=== PATIENT | female | born 1950 | race Caucasian/White ===

== ENCOUNTER → 2020-03-20 17:55 | Outpatient (CLI) | payer MEDICARE, SELFPAY ==
--- NOTE | ~2020-03-20 | MM_ITS ---
EXAMINATION: MM screening [facility] BI w robert HISTORY: Screening mammogram, family history of breast cancer in her sister. TECHNIQUE: Craniocaudal and mediolateral oblique 3-D tomosynthesis images were obtained and synthetic 2-D images were generated. CAD analysis was submitted and interpreted. COMPARISON: 11/29/2018, 09/28/2017, 09/17/2017, 07/08/2016 BREAST PARENCHYMAL COMPOSITION: There are scattered areas of fibroglandular density. FINDINGS: Stable right breast masses are again noted and considered benign given the lack of interval change. There is no evidence of suspicious mass, calcification, or architectural distortion to sugge st malignancy in either breast. There has been no suspicious interval change. IMPRESSION: 1. No mammographic evidence of malignancy. 2. Recommend routine screening mammography in one year. BI-RADS Category 2: Benign finding(s). Reviewed, dictated and finalized at location A.
== END ==
PROVIDERS: Visit Provider Obstetrics & Gynecology
DX: Z12.31 Encounter for screening mammogram for malignant neoplasm of breast (principal)
CPT/HCPCS: 77063; 77067

== ENCOUNTER → 2021-07-18 13:55 | Outpatient (CLI) | payer MEDICARE, SELFPAY ==
--- NOTE | ~2021-07-18 | MM_ITS ---
EXAMINATION: MM screening [facility] BI w robert HISTORY: Screening mammogram TECHNIQUE: Craniocaudal and mediolateral oblique 3-D tomosynthesis images were obtained and synthetic 2-D images were generated. CAD analysis was submitted and interpreted. COMPARISON: 03/20/2020, 11/29/2018 bilateral screening mammogram examinations 09/28/2017 diagnostic left mammogram and limited left breast ultrasound , bilateral screening mammogram examinations BREAST PARENCHYMAL COMPOSITION: There are scattered areas of fibroglandular density. FINDINGS: Stable mild fibroglandular asymmetry. There is no evidence of suspicious mass, calcificatio n, or architectural distortion to suggest malignancy in either breast. There has been no suspicious i nterval change. IMPRESSION: 1. No mammographic evidence of malignancy. 2. Recommend routine screening mammography in one year. BI-RADS Category 2: Benign finding(s). Reviewed, dictated and finalized at location A. ER IN [facility]
== END ==
PROVIDERS: PCP Family Medicine Adolescent Medicine; Visit Provider Obstetrics & Gynecology
DX: Z12.31 Encounter for screening mammogram for malignant neoplasm of breast (principal)
CPT/HCPCS: 77063; 77067

== ENCOUNTER 2022-01-12 11:53 | Emergency (ER) | payer MEDICARE, SELFPAY ==
[2022-01-12 12:01] VITALS: BP 138/75; PULSE 108; RESP 16; TEMP 37; O2SAT 100
--- NOTE | 2022-01-12 12:36 | ED.URI ---
HPI - URI/Sore Throat General Chief Complaint: Upper Respiratory Infection Stated Complaint: covid positive Time Seen by Provider: 01/12/22 12:35 Source: patient, RN notes reviewed and old records reviewed Mode of arrival: ambulatory Limitations: no limitations History of Present Illness HPI Narrative: 71-year-old female who presents to [facility] with complaints of testing positive on home test on Thursday for COVID with symptoms starting on Thursday, is here today inquiring about receiving Paxlovid antiviral medication. Patient reports that she has sinus congestion pressure aiwth some drainage with body aches and temperatures have been running 99-100F. Patient reports no acute cough, denies any shortness of breath. Patient has history of diabetes, HTN, chronic renal disease and also kidney stone history. Patient has not taken any OTC medications for her symptoms. Patient has been COVID vaccinated and booster also. Patient states concern since had been so ill with COVID. MD elicited complaint: other (COVID positive) Pertinent past history: pneumonia and other (kidney disease, diabetes, hypertension, elevated cholesterol) Onset (ago): day(s) (this day 3 of symptoms) Treatments prior to arrival: none Related Data Allergies Allergy/AdvReac Type Severity Reaction Status Date / Time diclofenac Allergy Unknown HIVES Unverified 01/12/22 12:26 Sulfa (Sulfonamide Allergy Unknown SWOLLEN Unverified 01/12/22 12:26 Antibiotics) LIPS Review of Systems Review of Systems: CONSTITUTIONAL: Reports low grade fever, chills, or sweats. EYES: Denies visual changes, redness, or discharge. ENT: rhinorrhea, congestion, no sore throat, or otalgia. CARDIOVASCULAR: Denies chest pain, palpitations, or edema. RESPIRATORY: Denies cough or dyspnea. GASTROINTESTINAL: Denies abdominal pain, nausea, vomiting, or diarrhea. GENITOURINARY: Denies dysuria or hematuria. SKIN: Denies rash or itching. MUSCULOSKELETAL: Denies back pain, joint pain, positive for body aches NEUROLOGIC: Denies headache, numbness, or weakness. PSYCHIATRIC: Denies anxiety or depression. All systems reviewed & are unremarkable except as noted in HPI and below PMFSH Past Medical History Medical History (Updated 01/13/22 @ 21:45 by Samara Gomez NP) Hypertension IBS (irritable bowel syndrome) Kidney stones Normal colonoscopy 11/10 Repeat 11/20 Pure hypercholesterolemia, unspecified Sensorineural hearing loss, bilateral Type 2 diabetes mellitus with diabetic chronic kidney disease Surgical History Surgical History (Updated 06/25/21 @ 15:30 by Lino Mattson MD) History of carpal tunnel surgery of left wrist 2005 History of ear surgery right stapedectomy 2013 History of hysterectomy w/BSO History of lithotripsy History of parathyroid surgery 1998 Family History Family History (Updated 06/25/21 @ 15:20 by Lino Mattson MD) Mother Cerebrovascular accident Sibling Breast cancer Social History Social History (Updated 01/13/22 @ 21:43 by Samara Gomez NP) Smoking status: Never smoker Alcohol intake: unknown Substance use: never Living arrangements: with family Gender identity (if verbalized by the patient): Female Comments At time of signature, agree with nursing past medical, surgical, social and family history. There is no relevant family history pertinent to the presenting complaint Exam Narrative: GENERAL: Well-appearing, well-nourished, and in no acute distress. HEAD: Normocephalic, atraumatic. EYES: PERRLA and EOMI. ENT: Nares red with clear rhinorrhea no epistaxis. Mucous membranes moist.TM's normal with good light reflex, throat pink with no lesions or exudates or tonsil swelling,post nasal drainage NECK: Supple.no lymphadenopathy CHEST: Clear to auscultation. No respiratory distress.SAO2 100% on room air, no tachypnea, HEART: Regular rate and rhythm. No murmur heard. Normal peripheral pulses. ABDOMEN: Soft,
== END 2022-01-12 13:01 | disposition home or self-care (01) ==
PROVIDERS: Emergency Provider Registered Nurse; PCP Family Medicine Adolescent Medicine
DX: U07.1 COVID-19 (principal); I10 Essential (primary) hypertension; E78.00 Pure hypercholesterolemia, unspecified; E11.22 Type 2 diabetes mellitus with diabetic chronic kidney disease; I12.9 Hypertensive chronic kidney disease with stage 1 through stage 4 chronic kidney disease, or unspecified chronic kidney disease; N18.9 Chronic kidney disease, unspecified
CPT/HCPCS: 99213; G0463

== ENCOUNTER → 2022-10-22 11:27 | Outpatient (CLI) | payer MEDICARE, SELFPAY ==
--- NOTE | ~2022-10-22 | MM_ITS ---
EXAMINATION: MM screening [facility] BI w robert HISTORY: Screening mammogram TECHNIQUE: Craniocaudal and mediolateral oblique 3-D tomosynthesis images were obtained and synthetic 2-D images were generated. CAD analysis was submitted and interpreted. COMPARISON: July 18, 2021, March 20, 2020, November 29, 2018 bilateral screening mammogram examinati ons BREAST PARENCHYMAL COMPOSITION: There are scattered areas of fibroglandular density. FINDINGS: Left breast: There is no evidence of suspicious mass, calcification, or architectural distortion to s uggest malignancy in either breast. There has been no suspicious interval change. Right breast: There is asymmetry and suggestion of subtle increased density in the upper outer right breast since prior examinations. Diagnostic right mammogram and upper outer quadrant right breast ult rasound examination are recommended IMPRESSION: 1. Asymmetry and possible subtle increased density in the upper outer right breast 2. Diagnostic right mammogram and upper outer quadrant right breast ultrasound examination are recomm ended BI-RADS Category 0: Incomplete: Needs additional imaging evaluation. Reviewed, dictated and finalized at location A. IMPRESSION: 1. Asymmetry and possible subtle increased density in the upper outer right kelsey ast 2. Diagnostic right mammogram and upper outer quadrant right breast ultrasound examination are recommended BI-RADS Category 0: Incomplete: Needs additional imaging evaluation.
== END ==
PROVIDERS: PCP Obstetrics & Gynecology; Visit Provider Obstetrics & Gynecology
DX: Z12.31 Encounter for screening mammogram for malignant neoplasm of breast (principal); R92.8 Other abnormal and inconclusive findings on diagnostic imaging of breast
CPT/HCPCS: 77063; 77067

== ENCOUNTER → 2022-11-11 07:49 | Outpatient (CLI) | payer MEDICARE, SELFPAY ==
--- NOTE | ~2022-11-11 | MMUS_ITS ---
EXAMINATION: MM diagnostic [facility] RT w robert, US breast RT limited HISTORY: Asymmetry and possible interval subtle increased density in the upper quadrant of the right breast reported on 10/22/2022 TECHNIQUE: Additional 3-D tomosynthesis images of the right breast were performed and synthetic 2-D i mages were generated. CAD analysis was submitted and interpreted. High resolution upper inner and upp er outer quadrant right breast ultrasound was performed. COMPARISON: 10/22/2022, 07/14/2021, 03/20/2020 bilateral screening mammogram examinations.. FINDINGS: MAMMOGRAPHIC FINDINGS: There is nodular density in the mid and lateral upper right breast, with possible masses measuring up to 6 mm. ULTRASOUND: No suspicious mass or shadowing is evident. 11:00 6 cm from nipple: 1.7 x 3.3 x 3.2 mm parallel circumscribed hypoechoic lesion without internal vascularity or posterior shadowing, benign in appearance 11:00 4 cm from nipple: 3.8 x 4 x 7 mm circumscribed septated hypoechoic lesion without internal vasc ularity or posterior shadowing, benign in appearance 12:00 4 cm from nipple: 7.2 x 4.8 x 7.8 mm parallel circumscribed hypoechoic lesion without internal vascularity or posterior shadowing 12:00 5 cm from nipple: 3.5 x 5.4 x 4.5 mm parallel circumscribed septated hypoechoic lesion without internal vascularity or posterior shadowing IMPRESSION: 1. Benign findings 2. Routine annual mammographic screening is recommended BI-RADS Category 2: Benign finding(s). Reviewed, dictated and finalized at location A. IMPRESSION: 1. Benign findings 2. Routine annual mammographic screening is recommended BI-RADS Category 2: Benign finding(s).
== END ==
PROVIDERS: PCP Obstetrics & Gynecology; Visit Provider Obstetrics & Gynecology
DX: N64.89 Other specified disorders of breast (principal)
CPT/HCPCS: 76642; 77061; 77065; G0279

== ENCOUNTER 2024-01-08 11:14 | Outpatient (CLI) | payer MEDICARE, SELFPAY ==
--- NOTE | ~2024-01-08 | MM_ITS ---
EXAMINATION: MM screening [facility] BI w robert HISTORY: Screening TECHNIQUE: Craniocaudal and mediolateral oblique 3-D tomosynthesis images were obtained and synthetic 2-D images were generated. CAD analysis was submitted and interpreted. COMPARISON: Comparison to multiple prior studies sequentially, with oldest reviewed study dated 12/2018. BREAST PARENCHYMAL COMPOSITION: Not dense: There are scattered areas of fibroglandular density. FINDINGS: There is no evidence of suspicious mass, calcification, or architectural distortion to sugg est malignancy in either breast. There has been no suspicious interval change. IMPRESSION: 1. No mammographic evidence of malignancy. 2. Recommend routine screening mammography in one year. BI-RADS Category 1: Negative Reviewed, dictated and finalized at location B.
== END 2024-01-08 11:15 ==
LOC: MICIMG 11:15
PROVIDERS: PCP Family Medicine Adolescent Medicine; Visit Provider Obstetrics & Gynecology
DX: Z12.31 Encounter for screening mammogram for malignant neoplasm of breast (principal)
CPT/HCPCS: 77063; 77067

== ENCOUNTER 2024-04-29 18:19 | Observation (INO) | payer MEDICARE, SELFPAY ==
--- NOTE | ~2024-04-29 | CT_ITS ---
EXAMINATION: CTA brain carotid DATE: 04/30/2024 09:57 INDICATION: Stroke. TECHNIQUE: Computed tomographic angiography (CTA) of the head was performed with 100 mL Omnipaque-350 intravenous contrast. CTA of the neck was performed with intravenous contrast. Automated exposure co ntrol and iterative reconstruction technique were employed. The dose-length product was 1100.23 mGy-c m. Maximum intensity projection and volume rendered 3D-reconstructions were created by the [employer] st on a separate workstation. COMPARISON: Head CT 04/29/2024 FINDINGS: HEAD CTA: There is no intracranial hemorrhage, acute infarction, or abnormal intracranial mass lesion . The ventricles are normal in size. The mastoid air cells are normal. There is a prosthetic stapes o n either side. The orbits are normal. There is mucosal thickening in the paranasal sinuses. The verte bral arteries are codominant. There is no significant stenosis of basilar artery or the posterior cer ebral arteries. The posterior communicating arteries are normal. There is no significant stenosis of the intracranial internal carotid arteries or anterior or middle cerebral arteries. Anterior communic ating artery is normal. There is no aneurysm. NECK CTA: There is mild scarring at the lung apices. There is a 4 mm nodule in left thyroid lobe, can not clinically significant. There are no pathologically enlarged lymph nodes. There is no significant stenosis of the vertebral arteries. There is mild plaque in the proximal internal carotid arteries. There is 0% stenosis of the proximal right internal carotid artery relative to normal distal artery lumen diameter (NASCET criteria). There is 12% stenosis of the proximal left internal carotid artery relative to normal distal artery lumen diameter. There is severe cervical spondylosis. IMPRESSION: 1. Normal brain. 2. No aneurysm or significant intracranial arterial stenosis. 3. 0% stenosis of the proximal right internal carotid artery relative to normal distal artery lumen d iameter (NASCET criteria). 4. 12% stenosis of the proximal left internal carotid artery relative to normal distal artery lumen d iameter. Reviewed, dictated and finalized at location A. ON PICKING MACHINE OPERATOR IMPRESSION: 1. Normal brain. 2. No aneurysm or significant intracranial arterial stenosis. 3. 0% stenosis of the proximal right internal carotid artery relative to normal distal artery lumen diameter (NASCET criteria). 4. 12% stenosis of the proximal left internal carotid artery relative to normal distal artery lumen diameter.
--- NOTE | ~2024-04-29 | CT_ITS ---
CT facial & cervical spine wo Ordering provider: Thao Callahan History: . fall . Comparison: None. Technique: Thin slice axial CT of the facial bones was performed without contrast. Coronal and sagit yolanda reformatted images were also obtained. . Automated exposure control and iterative reconstruction technique were employed. The dose-length product was 222.96 mGy-cm. FINDINGS: PARANASAL SINUSES: Left maxillary sinus disease. Obliterated of the left ostiomeatal complex. BONES: Nondisplaced facial bone fracture. Multiple dental caries in the upper jaw. ORBITS AND SUPERFICIAL SOFT TISSUES: The optic globes and orbits are normal. Soft tissue swelling ant erior to the left maxillary sinus and inferior orbit. Fat stranding anterior to the left upper and lo wer jaw. Otherwise, The superficial soft tissues are normal. VISUALIZED MASTOIDS: Well aerated. LIMITED VISUALIZED BRAIN PARENCHYMA: Normal. IMPRESSION: Left nasal bone fracture. Left maxillary sinus disease. Obliteration of the left ostiomeatal complex. Soft tissue swelling anterior to the left orbit and left maxillary sinus. CT facial & cervical spine wo Ordering provider: Thao Callahan History: . fall . Comparison: None. Technique: CT of the cervical spine was performed without contrast. Sagittal and coronal reformatted images were also obtained and reviewed. Automated exposure control and iterative reconstruction tye hnique were employed. The dose-length product was 222.96 mGy-cm. FINDINGS: VERTEBRAE: No subluxation or acute fracture. The occipital condyles are intact. 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 DISC SPACES: Narrowing of the disc C3-C4, C4-C5, C5-C6, C6-C7 and C7-T1. Multilevel facet joint disea se. Multilevel uncovertebral joint osteoarthritic changes. Narrowing of the left foramina at the leve l of C3-C4. Bilateral narrowing of the foramina at the level of C4-C5 more on the left side. Bilatera l narrowing of the foramina at the level of C5-C6 and C6-C7 PARASPINOUS SOFT TISSUES: Normal. IMPRESSION: No acute osseous abnormality cervical spine. Reviewed, dictated and finalized at location A. WARE DESIGNER IMPRESSION: Left nasal bone fracture. Left maxillary sinus disease. Obliteration of the left ostiomeatal complex. Soft tissue swelling anterior to the left orbit and left maxillary sinus. CT facial & cervical spine wo Ordering provider: Thao Callahan History: . fall . Comparison: None. Technique: CT of the cervical spine was performed without contrast. Sagittal a nd coronal reformatted images were also obtained and reviewed. Automated expos ure control and iterative reconstruction technique were employed. The dose-janes th product was 222.96 mGy-cm. FINDINGS: VERTEBRAE: No subluxation or acute fracture. The occipital condyles are intact. 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 DISC SPACES: Narrowing of the disc C3-C4, C4-C5, C5-C6, C6-C7 and C7-T1. Multil evel facet joint disease. Multilevel uncovertebral joint osteoarthritic changes . Narrowing of the left foramina at the level of C3-C4. Bilateral narrowing of the foramina at the level of C4-C5 more on the left side. Bilateral narrowing o f the foramina at the level of C5-C6 and C6-C7 PARASPINOUS SOFT TISSUES: Normal.
--- NOTE | ~2024-04-29 | XR_ITS ---
XR chest 1V portable Ordering provider: Itz Scherer MD History: 73 years Female with . fall . Comparison: None. FINDINGS: MEDIASTINUM: The cardiac silhouette is not enlarged. LUNGS: No effusions or pneumothorax. Bilateral basal increased bronchovascular markings suggestive br onchiolitis or atelectasis or early pneumonia. Clinical correlation advised. Underlying fibrotic nara nges. OTHER: No free air under the diaphragm. IMPRESSION: Bilateral prominent bronchovascular markings in the lower lobes with underlying interstitial changes. Differential include bronchitis versus early pneumonia versus atelectasis. Reviewed, dictated and finalized at location A. WORKER IMPRESSION: Bilateral prominent bronchovascular markings in the lower lobes with underlying interstitial changes. Differential include bronchitis versus early pneumonia v ersus atelectasis.
--- NOTE | ~2024-04-29 | MR_ITS ---
EXAMINATION: MR brain/brain stem wo con DATE: 05/01/2024 10:47 INDICATION: Stroke. TECHNIQUE: Magnetic resonance imaging (MRI) of the brain and brainstem was performed without intraven ous contrast. COMPARISON: Head CT 04/29/24 FINDINGS: There are scattered areas of nonspecific increased T2-weighted signal intensity in the cere bral white matter, which is within normal limits for the patient's age. There is no intracranial hemo rrhage, acute infarction, or abnormal intracranial mass lesion. The ventricles are normal in size. Th ere is mild mucosal thickening in the paranasal sinuses. The orbits are normal. The mastoid air cells are normal. IMPRESSION: 1. Normal aging brain. Reviewed, dictated and finalized at location A. ONETTE PERFORMER IMPRESSION: 1. Normal aging brain.
--- NOTE | ~2024-04-29 | CT_ITS ---
CT brain wo con Ordering provider: Thao Callahan MD History: 73 years Female with . fall . Comparison: None. Technique: CT of the head without contrast. Radiation reduction technique utilized. The dose-length p roduct was 681 mGy-cm. FINDINGS: BRAIN PARENCHYMA AND CSF SPACES: Mild leukoaraiosis and diffuse cortical atrophy. Mild atheromatous d isease. No midline shift, mass effect or hemorrhage. The brain parenchyma and CSF spaces are otherwi se normal. 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 VISUALIZED PARANASAL SINUSES: Left maxillary sinus disease. MASTOIDS: Well aerated. BONES: The bones appear intact. SOFT TISSUES: Visualized nasopharynx is normal. Superficial soft tissues are normal. IMPRESSION: No acute intracranial findings. Reviewed, dictated and finalized at location A. UREMENT COST COORDINATOR
[2024-04-29 18:21] VITALS: BP 181/69; PULSE 109; RESP 20; TEMP 36.4; O2SAT 98
--- NOTE | 2024-04-29 18:58 | ECG_ITS ---
Test Date: 2024-04-29 19:58:56 Measurements Intervals Al[place] Rate: 93 P: 72 OH: 134 QRS: 12 QRSD: 78 T: 42 QT: 335 QTc: 418 Interpretive Statements SINUS RHYTHM No previous ECG available for comparison Electronically Signed On 04-30-2024 14:29:12 ADULT EDUCATION INSTRUCTOR by Haris Argueta M.D.
[2024-04-29 19:57] VITALS: BP 171/73; PULSE 92; RESP 17; O2SAT 99
[2024-04-29 20:11] LABS: Basophils Percent Auto 0.3 % (0.2-1.2); Eosinophils Percent Auto 0.3 % (0-4.4); Hematocrit 37.3 % (37.0-47.0); Hemoglobin 12.5 g/dL (12.0-15.0); Immature Granulocyte Absolute 0.04 K/mm3 (0.00-0.031); Immature Granulocyte Percent A 0.5 % (0-0.5); Lymphocytes Absolute Auto 0.77 K/mm3 (0.9-3.2); Lymphocytes Percent Auto 8.7 % (18.3-44.2); Mean Corpuscular HGB Conc 33.5 g/dl (32-36); Mean Corpuscular Hemoglobin 29.9 pg (26-34); Mean Corpuscular Volume 89.2 fl (80-100); Monocytes Absolute Auto 0.4 K/mm3 (0.1-0.6); Monocytes Percent Auto 4.6 % (2.6-8.5); Neutrophils Absolute Auto 7.6 K/mm3 (1.3-6.7); Neutrophils Percent Auto 85.6 % (45.5-73.1); Platelet Count Result 183 k/mm3 (150-375); Red Blood Count 4.18 M/mm3 (4.2-5.4); Red Cell Distribution Width 12.2 % (11.5-14.5); White Blood Count 8.8 K/mm3 (4.5-10.0)
[2024-04-29 20:23] LABS: Alanine Aminotransferase 18 U/L (6-35); Albumin Level 4.3 g/dL (3.5-5.1); Alkaline Phosphatase 102 U/L (38-126); Anion Gap 4 mmol/L (4-12); Aspartate Amino Transferase 31 U/L (14-36); Bilirubin,Total 1.8 mg/dL (0.2-1.3); Blood Urea Nitrogen 14 mg/dL (7-17); Calcium 8.8 mg/dL (8.4-10.2); Carbon Dioxide 27 mmol/L (22-30); Chloride 106 mmol/L (98-107); Estimated CRCL calculation 55 ml/min; Estimated Glomerular Filt Rate > 60; Glucose 125 mg/dL (65-110); Magnesium 0.9 mg/dL (1.6-2.3); Potassium 3.5 mmol/L (3.4-5.0); Sodium 137 mmol/L (137-145)
[2024-04-29 20:30] LABS: Add Urine Microscopic? YES; Appearance Urine Clear (Clear); Bacteria Urine None Seen /hpf; Bilirubin Urine Negative (Negative); Blood Urine 1+ (Negative); Color Urine Yellow (Yellow); Glucose Urine UA Negative (Negative); Ketones Urine 1+ mg/dL (Negative); Leukocyte Esterase Ur Negative LEU/UL (Negative); Nitrate Urine Negative (Negative); Non Pathogenic Casts 0-2; Protein Urine Negative (Negative); Specific Grav Ur 1.015 (1.001-1.035); Squamous Epithelial Cell Urine None Seen /hpf (Few); Urobilinogen Urine 0.2 mg/dL (<2.0); WBC Urine 0-5 /hpf (0-3)
[2024-04-29 20:35] LABS: Troponin I < 0.012 ng/mL (0.000-0.034)
[2024-04-29] MEDS: MAGNESIUM SULFATE 3GM/D5W100ML 3 GM/100 ML BAG IVPB (21:17)
[2024-04-29 23:12] VITALS: BP 163/71; PULSE 96; RESP 16; O2SAT 100
[2024-04-30] VITALS (11 sets, daily range): BP systolic 120–143; BP diastolic 52–63; PULSE 68–88; RESP 16–20; TEMP 36.5–36.9; O2SAT 96–99; BMI 23.1
--- NOTE | 2024-04-30 | ECHO_ITS ---
Patient Info Name: Eve Aguirre Age: 73 years : 1950 Gender: Female Ht: 68 in Wt: 152 lbs BSA: 1.82 m2 HR: 83 bpm BP: 129 / 63 mmHg Heart Rhythm: Sinus Rhythm Technical Quality: Good Exam Date: 04/30/2024 10:46 AM Exam Location: Echo Lab Patient Status: Inpatient Admit Date: 04/30/2024 Staff Ordering Physician: Neelima Trujillo APRN Safety Intern: Jesica Charles RDCS Attending Provider: Neelima Trujillo APRN Referring Physician: Ronnie MCLAIN; Exam Type: CA echo doppler w bubble study Study Info Complete two-dimensional, color flow and Doppler transthoracic echocardiogram is performed with agitated saline. Contrast/Agitated Saline Contrast/Ag. Saline: Agitated Saline Amount: --- ml Summary 1. Left ventricular chamber dimension is normal. 2. Left ventricular systolic function is normal, estimated at 65-70%. 3. The left ventricular diastolic function is grade I diastolic dysfunction. 4. Right ventricular chamber dimension is normal. 5. Right ventricular systolic function is normal. 6. No patent ovale evident (PFO) by agitated saline imaging. 7. There is mild mitral valve regurgitation. 8. Mild pulmonary hypertension, estimated pulmonary arterial systolic pressure is 41 mmHg. Left Ventricle Left ventricular chamber dimension is normal. Left ventricular systolic function is normal, estimated at 65-70%. There is no increased left ventricular wall thickness. Left ventricular septal wall motion is normal. The left ventricular diastolic function is grade I diastolic dysfunction. Right Ventricle Right ventricular chamber dimension is normal. Right ventricular systolic function is normal. Left Atria Left atrial chamber dimension is normal. Right Atria Right atrial chamber dimension is normal. Atrial Septum No patent ovale evident (PFO) by agitated saline imaging. Aortic Valve The aortic valve is trileaflet. There is no aortic valve sclerosis. There is no aortic valve stenosis. There is no aortic valve regurgitation. Pulmonic Valve The pulmonic valve is not well visualized. Mitral Valve There is no mitral valve stenosis. There is mild mitral valve regurgitation. Tricuspid Valve The tricuspid valve leaflets are normal. There is no significant tricuspid valve stenosis. There is mild tricuspid valve regurgitation. Mild pulmonary hypertension, estimated pulmonary arterial systolic pressure is 41 mmHg. Pericardium/Pleural The pericardium appears normal. There is no pericardial effusion. Inferior Vena Cava Normal inferior vena cava with >50% collapse upon inspiration consistent with normal right atrial pressure, 5 mmHg. Aorta The aortic root size at the sinus of Valsalva is normal. The prox ascending aorta size is normal. Left Ventricular Outflow Tract Name Value Normal LVOT 2D LVOT Diameter 2.1 cm LVOT Doppler LVOT Peak Gradient 5 mmHg Pulmonic Valve Name Value Normal PV Doppler PV Peak Gradient 6 mmHg Mitral Valve Name Value Normal MV Doppler MV Peak Gradient 5 mmHg MV Mean Gradient 2 mmHg MV Decel Kern 394 cm/s2 MV PHT 62 ms MV Area (PHT) 3.5 cm2 4.0-5.0 MV Regurgitation Doppler MR Peak Gradient 147 mmHg MV Diastolic Function MV E Peak Velocity 84 cm/s MV A Peak Velocity 99 cm/s MV E/A 0.9 MV Decel Time 214 ms MV Annular TDI MV E/e' (Septal) 8.7 <=8.0 MV E/e' (Lateral) 9.1 <=8.0 MV E/e' (Average) 8.9 Tricuspid Valve Name Value Normal TV Regurgitation Doppler TR Peak Velocity 301 cm/s TR Peak Gradient 36 mmHg Estimated PAP/RSVP RA Pressure 5 mmHg <=5 PA Systolic Pressure 41 mmHg <36 RV Systolic Pressure 41 mmHg <36 Aorta Name Value Normal Ascending Aorta Ao Root Diameter (2D) 2.8 cm Ao Root Diam Index (2D) 1.6 cm/m2 Aortic Valve Name Value Normal AV Doppler AV Peak Velocity 140 cm/s AV Peak Gradient 8 mmHg AV Area (Cont Eq Desean) 2.7 cm2 AV Regurgitation 2D LVOT Area 3.4 cm2 Ventricles Name Value Normal LV Dimensions 2D/MM IVS Diastolic Thickness (2D) 0.7 cm 0.6-1.0 LVID Diastole (2D) 4.2 cm 3.8-5.2 LVIW Diastolic Thickness (2D) 0.8 cm 0.6-0.9 LVID Systole (2D) 3.1 cm 2.2-3.5 LVOT Diameter 2.1 cm LV Mass (2D Cubed) 90.78 g 67.00-162.00 LV Mass Index (2D Cubed) 50 g/m2 43-95 Relative Wall Thickness (2D) 0.37 LV Fractional Shortening/Ejection Fraction 2D/MM LV Fractional Shortening (2D) 25 % 27-45 LV EF (2D Teicholz) 51 % 54-74 LV Diastolic Volume (4C MOD) 108 ml LV EF (4C MOD) 67 % LV Diastolic Volume (2C MOD) 105 ml LV EF (2C MOD) 73 % LV Diastolic Volume (BP MOD) 107 ml 46-106 LV Diastolic Volume Index (BP MOD) 59 ml/m2 29-61 LV Systolic Volume (BP MOD) 32 ml 14-42 LV Systolic Volume Index (BP MOD) 18 ml/m2 8-24 LV EF (BP MOD) 70 % 54-74 LV Diastolic Length (4C) 8.1 cm LV Systolic Length (4C) 6.1 cm LV Stroke Volume (4C MOD) 73 ml Atria Name Value Normal LA Dimensions LA Dimension (2D) 3.4 cm 2.7-3.8 LA Dimen Index (2D) 1.9 cm/m2 LA Volume (4C A-L) 40 ml LA Volume (BP A-L) 45 ml RA Dimensions RA Area (4C) 12.6 cm2 <=18.0 Report Signatures
--- NOTE | 2024-04-30 00:14 | ED_ITS ---
HPI - General Adult General Chief complaint: Fall Stated complaint: fall Time Seen by Provider: 04/29/24 19:09 History of Present Illness HPI narrative: Patient is a 73-year-old female who presents emergency department with chief complaint of head injury. Patient reports she was outside and suddenly woke up on the ground patient reports no preceding symptoms reports that she has bruis ing around her left orbit and face patient also reports she has an abrasion inside of her lip the patient states that she does not remember passing out does not remember falling reports he did not catch herself during the fall Related Data Home Medications Medication Instructions Recorded Confirmed doxycycline hyclate 100 mg tablet 100 mg PO DAILY 08/04/23 08/04/23 Allergies Allergy/AdvReac Type Severity Reaction Status Date / Time diclofenac Allergy Unknown HIVES Verified 04/29/24 18:25 Sulfa (Sulfonamide Allergy Unknown SWOLLEN Verified 04/29/24 18:25 Antibiotics) LIPS Review of Systems Review of Systems: A 10 system review of systems was completed on the patient and is negative except for what is stated in the HPI. Nursing and ancillary documentation was reviewed. [facility] Past Medical History Medical History Breast asymmetry History of COVID-19 IBS (irritable bowel syndrome) Kidney stones Normal colonoscopy 11/10 Repeat 11/20 Pure hypercholesterolemia, unspecified Screening mammogram, encounter for Screening mammogram, encounter for Sensorineural hearing loss, bilateral Type 2 diabetes mellitus with diabetic chronic kidney disease Surgical History Surgical History History of carpal tunnel surgery of left wrist 2006 History of section x 2 History of ear surgery right stapedectomy 2014 History of hysterectomy w/BSO History of lithotripsy History of parathyroid surgery 1998 Family History Family History Mother Cerebrovascular accident Sibling Breast cancer Diabetes mellitus Hypertension Father Heart disease Hypertension Malignant neoplasm of prostate Social History Social History Smoking status: Never smoker Second hand tobacco smoke exposure: No Alcohol intake: never Substance use: never Substance use type: does not use Living arrangements: other Additional living arrangements comments: Occupation/Education: retired Gender identity (if verbalized by the patient): Female Sexual Orientation (if Verbalized by the Patient): Straight or Heterosexual Spiritual care concerns: No Agree to blood products: Yes Exam Narrative: GENERAL: Well-appearing, well-nourished, and in no acute distress. HEAD: Normocephalic, bruising around the left orbit abrasion to the nose,. EYES: PERRLA and EOMI. ENT: Nares clear, no rhinorrhea or epistaxis. Mucous membranes moist. There is an abrasion to the lip on the inside mucosa there is no malocclusion NECK: Supple. CHEST: Clear to auscultation. No respiratory distress. HEART: Regular rate and rhythm. No murmur heard. Normal peripheral pulses. ABDOMEN: Soft, nontender, nondistended, normal active bowel sounds. EXTREMITIES: Normal range of motion. No edema. SKIN: Warm, dry, no rash. NEURO: No focal deficits. Alert and oriented x3. PSYCH: Normal mood and affect. Course Vital Signs Vital signs: Vital Signs Temperature 36.4 C L 04/29/24 18:21 Pulse Rate 109 H 04/29/24 18:21 Respiratory Rate 20 04/29/24 18:21 Blood Pressure 181/69 H 04/29/24 18:21 Pulse Oximetry 98 04/29/24 18:21 Oxygen Delivery Room Air 04/29/24 18:21 Temperature 36.4 C L 04/29/24 18:21 Pulse Rate 96 04/29/24 23:12 Respiratory Rate 16 04/29/24 23:12 Blood Pressure 163/71 H 04/29/24 23:12 Pulse Oximetry 100 04/29/24 23:12 Oxygen Delivery Room Air 04/29/24 18:21 Medical Decision Making [facility] Narrative Medical decision making narrative: Differential diagnosis includes syncope, CVA, TIA, electrolyte abnormality, anemia Patient is alert oriented GCS 15 showing no focal neurological deficits here in the emergency department. CBC showed a white count of 8.8 hemoglobin of 12.5 electrolytes showed potassium of 3.5 and a magnesium of 0.9 troponin was less than 0.012 urinalysis showed no evidence UTI CT facial bones showed a left nasal bone fracture There are contusions present to face There was no evidence of cervical spine fracture CT head showed no evidence of acute intracranial pathology Chest x-ray Bilateral prominent bronchovascular markings in the lower lobes with underlying interstitial changes. Differential include bronchitis versus early pneumonia versus atelectasis The patient was given 3 g of magnesium as well as 20 mEq of IV potassium in the emergency department. Given the patient most likely had a syncopal episode and with the significant hypomagnesemia which would be pro dysrhythmic the case will be discussed with the hospitalist for admission for observation and electrolyte replacement Vital Signs Vital Signs: Vital Signs Temperature 36.4 C L 04/29/24 18:21 Pulse Rate 109 H 04/29/24 18:21 Respiratory Rate 20 04/29/24 18:21 Blood Pressure 181/69 H 04/29/24 18:21 Pulse Oximetry 98 04/29/24 18:21 Oxygen Delivery Room Air 04/29/24 18:21 Temperature 36.4 C L 04/29/24 18:21 Pulse Rate 96 04/29/24 23:12 Respiratory Rate 16 04/29/24 23:12 Blood Pressure 163/71 H 04/29/24 23:12 Pulse Oximetry 100 04/29/24 23:12 Oxygen Delivery Room Air 04/29/24 18:21 Lab Data 04/29/24 20:06 04/29/24 20:06 Labs: Lab Results 04/29/24 04/29/24 Range/Units 20:06 20:22 WBC 8.8 (4.5-10.0) K/mm3 RBC 4.18 L (4.2-5.4) M/mm3 Hgb 12.5 (12.0-15.0) g/dL Hct 37.3 (37.0-47.0) % MCV 89.2 (80-100) fl MCH 29.9 (26-34) pg MCHC 33.5 (32-36) g/dl RDW 12.2 (11.5-14.5) % Plt Count 183 (150-375) k/mm3 MPV 12.0 H (7.4-10.4) fl Immature Gran % (Auto) 0.5 (0-0.5) % Neut % (Auto) 85.6 H (45.5-73.1) % Lymph % (Auto) 8.7 L (18.3-44.2) % [place] % (Auto) 4.6 (2.6-8.5) % Eos % (Auto) 0.3 (0-4.4) % Baso % (Auto) 0.3 (0.2-1.2) % Lymph # (Auto) 0.77 L (0.9-3.2) K/mm3 [place] # (Auto) 0.4 (0.1-0.6) K/mm3 Eos # (Auto) 0.0 (0-0.3) K/mm3 Baso # (Auto) 0.0 (0.0-0.1) K/mm3 Abs Immat Gran (auto) 0.04 H (0.00-0.031) K/mm3 Absolute Neuts (auto) 7.6 H (1.3-6.7) K/mm3 Absolute Nucleated RBC 0.000 (0.0-0.012) K/mm3 Nucleated RBC % 0.0 (0.0-0.2) % Sodium 137 (137-145) mmol/L Potassium 3.5 (3.4-5.0) mmol/L Chloride 106 (98-107) mmol/L Carbon Dioxide 27 (22-30) mmol/L Anion Gap 4 (4-12) mmol/L BUN 14 (7-17) mg/dL Creatinine 0.80 (0.7-1.0) mg/dL Estim Creat Clear Calc 55 ml/min Estimated GFR > 60 (59 - ) Glucose 125 H (65-110) mg/dL Calcium 8.8 (8.4-10.2) mg/dL Magnesium 0.9 L (1.6-2.3) mg/dL Total Bilirubin 1.8 H (0.2-1.3) mg/dL AST 31 (14-36) U/L ALT 18 (6-35) U/L Alkaline Phosphatase 102 (38-126) U/L Troponin I < 0.012 (0.000-0.034) ng/mL Total Protein 7.0 (6.3-8.2) g/dL Albumin 4.3 (3.5-5.1) g/dL Urine Color Yellow (Yellow) Urine Appearance Clear (Clear) Urine pH 5.0 (5.0-9.0) Ur Specific [place] 1.015 (1.001-1.035) Urine Protein Negative (Negative) mg/dL Urine Glucose (UA) Negative (Negative) mg/dL Urine Ketones 1+ H (Negative) mg/dL Ur Blood (Man) 1+ H (Negative) Urine Nitrate Negative (Negative) Urine Bilirubin Negative (Negative) Urine Urobilinogen 0.2 (<2.0) mg/dL Leukocyte Esterase Rfl Negative (Negative) JOANNA/UL Urine RBC 3-5 H (0-2) /hpf Urine WBC 0-5 (0-3) /hpf Ur Squamous Epith Cells None seen (Few) /hpf Urine Bacteria None seen /hpf Urine Casts 0-2 Discharge Plan Discharge Clinical Impression: Syncope, Hypomagnesemia, Contusion of face, Closed fracture nasal bone, Head injury Patient Disposition: Still a Patient Condition: Stable Prescriptions: No Action doxycycline hyclate 100 mg tablet 100 mg PO DAILY lisinopril 10 mg tablet See Rx Instructions .ROUTE .COMPLEX Qty: 90 3RF Hold Instructions: Patient Condition Dose Instruction: TAKE 1 TABLET BY MOUTH EVERY DAY Rx Instructions: TAKE 1 TABLET BY MOUTH EVERY DAY atorvastatin 40 mg tablet See Rx Instructions .ROUTE .COMPLEX Qty: 90 3RF Dose Instruction: TAKE 1 TABLET BY MOUTH EVERY DAY Rx Instructions: TAKE 1 TABLET BY MOUTH EVERY DAY metformin 500 mg tablet extended release 24 hr 1,000 mg PO DAILY Qty: 180 3RF spironolactone 50 mg tablet 50 mg PO DAILY Qty: 90 1RF Rx Instructions: 50 mg orally PRN; Follow-up/Referrals: Lino Mattson MD [Primary Care Provider] - Time of Disposition: 00:18
[2024-04-30] MEDS: KCL 20 MEQ/SW 100 ML 100 ML 50 MEQ IVPB (00:27)
[2024-04-30] MEDS: SODIUM CHLORIDE 0.9% IV 250 ML 100 ML (00:33)
[2024-04-30] MEDS: HYDROcodone/acetaminophen (*CRX) 5-325 MG TABLET 1 TAB PO ×3 (00:38→13:09)
--- NOTE | 2024-04-30 02:19 | ADMGEN ---
This patient, Eve Aguirre, was admitted to Medical Room [facility] at 0219. Patient/family oriented to hospital policies and general routines including ID bracelet, bed and alarms, visiting hours, pain management, procedures, bathroom and other care routines, personal items, smoking policy, room service/diet, and visiting hours. Information on how to activate the Rapid Response Team has been discussed. Patient/Family are encouraged to report perceived risks to care and to ask questions if they do not understand what they are told or what they should do.
--- NOTE | 2024-04-30 02:30 | ADMGEN ---
This patient, Eve Aguirre, was admitted to Medical Room 346-01. Patient/family oriented to hospital policies and general routines including ID bracelet, bed and alarms, visiting hours, pain management, procedures, bathroom and other care routines, personal items, smoking policy, room service/diet, and visiting hours. Information on how to activate the Rapid Response Team has been discussed. Patient/Family are encouraged to report perceived risks to care and to ask questions if they do not understand what they are told or what they should do.
[2024-04-30 06:15] LABS: Basophils Percent Auto 0.5 % (0.2-1.2); Eosinophils Absolute Auto 0.1 K/mm3 (0-0.3); Eosinophils Percent Auto 1.1 % (0-4.4); Hematocrit 36.5 % (37.0-47.0); Hemoglobin 11.9 g/dL (12.0-15.0); Immature Granulocyte Absolute 0.02 K/mm3 (0.00-0.031); Immature Granulocyte Percent A 0.4 % (0-0.5); Lymphocytes Absolute Auto 1.73 K/mm3 (0.9-3.2); Lymphocytes Percent Auto 31.2 % (18.3-44.2); Mean Corpuscular HGB Conc 32.6 g/dl (32-36); Mean Corpuscular Hemoglobin 29.7 pg (26-34); Mean Platelet Volume 12.3 fl (7.4-10.4); Monocytes Absolute Auto 0.5 K/mm3 (0.1-0.6); Monocytes Percent Auto 9.6 % (2.6-8.5); Neutrophils Absolute Auto 3.2 K/mm3 (1.3-6.7); Neutrophils Percent Auto 57.2 % (45.5-73.1); Platelet Count Result 186 k/mm3 (150-375); Red Blood Count 4.01 M/mm3 (4.2-5.4); Red Cell Distribution Width 12.2 % (11.5-14.5); White Blood Count 5.5 K/mm3 (4.5-10.0)
[2024-04-30 06:22] LABS: Alanine Aminotransferase 16 U/L (6-35); Albumin Level 3.7 g/dL (3.5-5.1); Alkaline Phosphatase 93 U/L (38-126); Anion Gap 4 mmol/L (4-12); Aspartate Amino Transferase 25 U/L (14-36); Bilirubin,Total 2.2 mg/dL (0.2-1.3); Blood Urea Nitrogen 12 mg/dL (7-17); Calcium 8.6 mg/dL (8.4-10.2); Carbon Dioxide 30 mmol/L (22-30); Chloride 106 mmol/L (98-107); Estimated CRCL calculation 55 ml/min; Estimated Glomerular Filt Rate > 60; Glucose 103 mg/dL (65-110); Magnesium 1.6 mg/dL (1.6-2.3); Sodium 140 mmol/L (137-145)
--- NOTE | 2024-04-30 08:12 | P.HP_ITS ---
H&P: HPI History of Present Illness Date/Time: 04/30/24 08:12 Chief Complaint: Fall Narrative: This is a 73 year old female with a significant past medical history of kidney stones, IBS, hyperlipidemia, type 2 DM, hypertension for evaluation after a fall. Patient states that all she remembers is that she was bending over trimming landscaping. found her slumped over and brought her in the house. She states her reported that she was confused right after that however she could not remember anything about that. She was only confused for a period of time before she came back to herself. She states she was sitting in the living room chair and her was next to her when she asked what happened. She reports that she bit her lip and does have a swollen bottom lip with scabbing. She was able to move all extremities and did not have any neuro deficits at the time. Work up in the hospital included Chest x-ray that shows bilateral prominent bronchovascular markings in the lower lobes with underlying interstitial changes. Head CT was negative for any acute intracranial findings. Head/Cervical spine/facial bones CT was negative for any acute osseous abnormality of the cervical spine, shown left nasal bone fracture, left maxillary sinus disease, obliteration of the left ostiomeatal complex, soft tissue swelling anterior to the left orbit and left maxillary sinus. Initial labs shown a WBC 8.8, RBC 4.18, Magnesium 0.9, total bili 1.8. UA shown 1+ urine ketones, 1+ urine blood, 3-5 urine RBC, otherwise negative. EKG shown NSR with rate of 93, QTc 418. Patient was given IVF, [place], potassium, and magnesium 3 gm in the ER. Review of Systems Review of Systems: All systems reviewed & are unremarkable except as noted in HPI and below Constitutional: Constitutional: Reports as per HPI and Reports no additional constitutional complaints Eyes: Eyes: Reports as per HPI and Reports no additional eye complaints ENT: Reports system reviewed and no additional complaints, except as documented and Reports as per HPI Cardiovascular: Cardiovascular: Reports as per HPI and Reports no additional cardiovascular complaints Respiratory: Respiratory: Reports as per HPI and Reports no additional respiratory complaints Gastrointestinal: Gastrointestinal: Reports as per HPI and Reports no additional gastrointestinal complaints Genitourinary: Genitourinary: Reports no additional female genitourinary complaints and Reports as per HPI Musculoskeletal: Musculoskeletal: Reports no additional musculoskeletal complaints and Reports as per HPI Integumentary/Breasts: Skin/Breast: Reports system reviewed and no additional complaints, except as docu and Reports as per HPI Neurologic: Reports system reviewed and no additional complaints, except as documented and Reports as per HPI Psychiatric: Psychiatric: Reports no additional psychiatric complaints and Reports as per HPI [facility] Past Medical History Medical History Breast asymmetry History of COVID-19 Hypertension IBS (irritable bowel syndrome) Kidney stones Normal colonoscopy 11/10 Repeat 11/20 Pure hypercholesterolemia, unspecified Screening mammogram, encounter for Screening mammogram, encounter for Sensorineural hearing loss, bilateral Type 2 diabetes mellitus with diabetic chronic kidney disease Surgical History Surgical History History of carpal tunnel surgery of left wrist 2006 History of section x 2 History of ear surgery right stapedectomy 2014 History of hysterectomy w/BSO History of lithotripsy History of parathyroid surgery 1998 Family History Family History Mother Cerebrovascular accident Sibling Breast cancer Diabetes mellitus Hypertension Father Heart disease Hypertension Malignant neoplasm of prostate Social History Social History Smoking status: Never smoker Second hand tobacco smoke exposure: No Alcohol intake: never Substance use: never Substance use type: does not use Do You Feel Safe in your Home?: Yes Lack of Transportation: No Lack of Food: Never True Current Housing: I Have Housing Concerned About Future Housing: No Difficulty Paying Gas/Electric Bills: No Difficulty Paying for Meds: No Currently Unemployed: No Education: High School Diploma/GED Difficulty w/ Childcare or Family Care: No Living arrangements: other Additional living arrangements comments: Occupation/Education: retired Gender identity (if verbalized by the patient): Female Sexual Orientation (if Verbalized by the Patient): Straight or Heterosexual Spiritual care concerns: No Agree to blood products: Yes Meds Home Medications and Allergies Home Medications Medication Instructions Recorded Confirmed Type doxycycline hyclate 100 mg tablet 50 mg PO DAILY PRN SKIN IRRITATION 08/04/23 04/30/24 History ON MOUTH metformin 500 mg tablet,extended 1,000 mg PO DAILY #180 tabs 11/18/23 04/30/24 Rx release 24 hr atorvastatin 40 mg tablet 40 mg PO DAILY 04/30/24 04/30/24 History lisinopril 10 mg tablet 10 mg PO DAILY 04/30/24 04/30/24 History spironolactone 50 mg tablet 50 mg PO DAILY PRN SWELLING 04/30/24 04/30/24 History Allergies Allergy/AdvReac Type Severity Reaction Status Date / Time diclofenac Allergy Unknown HIVES Verified 04/29/24 18:25 Sulfa (Sulfonamide Allergy Unknown SWOLLEN Verified 04/29/24 18:25 Antibiotics) LIPS Vital Signs Vital Signs - 24 hr 04/29/24 18:21 04/29/24 19:57 04/29/24 23:12 Temperature 97.5 F L Pulse Rate 109 H 92 96 Respiratory Rate 20 17 16 Blood Pressure 181/69 H 171/73 H 163/71 H Pulse Oximetry 98 99 100 Oxygen Delivery Room Air Fraction of Inspired Oxygen 04/30/24 02:28 04/30/24 04:00 04/30/24 05:47 Temperature 97.7 F 97.7 F Pulse Rate 81 71 83 Respiratory Rate 20 18 Blood Pressure 143/56 H 129/63 Pulse Oximetry 99 97 Oxygen Delivery Fraction of Inspired Oxygen 04/30/24 07:55 Temperature Pulse Rate Respiratory Rate Blood Pressure Pulse Oximetry 98 Oxygen Delivery Room Air Fraction of Inspired Oxygen 21 Exam Narrative: General: In no acute distress, well nourished Head: atraumatic, no encephalopathy, facial swelling Eyes: EOMI, PERRLA, sclera clear, left eye ecchymosis and swelling ENT: moist mucous membranes, nasal passages clear, Abrasion on nose Neck: supple, no JVD, no adenopathy, trachea midline Cardiac: Normal S1 and S2. RRR, No murmur, gallops or friction rubs, peripheral pulses intact. Respiratory: Lungs clear to auscultation, no adventitious lung sounds, currently on room air Gastrointestinal: soft, non-distended, non-tender, normoactive bowel sounds. : voiding without difficulty. Extremities: moves all extremities well, no edema, good ROM, strength 5/5 Skin:ecchymosis over left eye, abrasion on nose and scab on bottom lip with swelling Neuro: Alert and oriented x4, cranial nerves intact, no neuro deficits. Psych: normal mood, normal affect, interactive H&P: Results Labs Labs: Short CBC 04/29/24 04/30/24 Range/Units 20:06 05:48 WBC 8.8 5.5 (4.5-10.0) K/mm3 Hgb 12.5 11.9 L (12.0-15.0) g/dL Hct 37.3 36.5 L (37.0-47.0) % Plt Count 183 186 (150-375) k/mm3 BMP 04/29/24 04/30/24 20:06 05:48 Sodium 137 140 Potassium 3.5 4.0 Chloride 106 106 Carbon Dioxide 27 30 BUN 14 12 Creatinine 0.80 0.80 Glucose 125 H 103 Calcium 8.8 8.6 Cardiac Enzymes 04/29/24 Range/Units 20:06 Troponin I < 0.012 (0.000-0.034) ng/mL Liver Function 04/29/24 04/30/24 Range/Units 20:06 05:48 Total Bilirubin 1.8 H 2.2 H (0.2-1.3) mg/dL AST 31 25 (14-36) U/L ALT 18 16 (6-35) U/L Alkaline Phosphatase 102 93 (38-126) U/L Albumin 4.3 3.7 (3.5-5.1) g/dL Urine 04/29/24 Range/Units 20:22 Urine Color Yellow (Yellow) Urine Appearance Clear (Clear) Urine pH 5.0 (5.0-9.0) Ur Specific [place] 1.015 (1.001-1.035) Urine Protein Negative (Negative) mg/dL Urine Glucose (UA) Negative (Negative) mg/dL Imaging Chest x-ray: Radiologist's impression: XR chest 1V portable Ordering provider: Itz Scherer MD History: 73 years Female with . fall . Comparison: None. FINDINGS: MEDIASTINUM: The cardiac silhouette is not enlarged. LUNGS: No effusions or pneumothorax. Bilateral basal increased bronchovascular markings suggestive bronchiolitis or atelectasis or early pneumonia. Clinical correlation advised. Underlying fibrotic changes. OTHER: No free air under the diaphragm. IMPRESSION: Bilateral prominent bronchovascular markings in the lower lobes with underlying interstitial changes. Differential include bronchitis versus early pneumonia versus atelectasis. Reviewed, dictated and finalized at location A. [facility] CT scan - head: Radiologist's impression: CT brain wo con Ordering provider: Thao Callahan MD History: 73 years Female with . fall . Comparison: None. Technique: CT of the head without contrast. Radiation reduction technique utilized. The dose-length product was 681 mGy-cm. FINDINGS: BRAIN PARENCHYMA AND CSF SPACES: Mild leukoaraiosis and diffuse cortical atrophy. Mild atheromatous disease. No midline shift, mass effect or hemorrhage. The brain parenchyma and CSF spaces are otherwise normal. 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 VISUALIZED PARANASAL SINUSES: Left maxillary sinus disease. MASTOIDS: Well aerated. BONES: The bones appear intact. SOFT TISSUES: Visualized nasopharynx is normal. Superficial soft tissues are normal. IMPRESSION: No acute intracranial findings. Reviewed, dictated and finalized at location A. [facility] Head/cervical spine/facial bones CT: Radiologist's impression: CT facial & cervical spine wo Ordering provider: Thao Callahan History: . fall . Comparison: None. Technique: Thin slice axial CT of the facial bones was performed without contrast. Coronal and sagittal reformatted images were also obtained. . Automated exposure control and iterative reconstruction technique were employed. The dose-length product was 222.96 mGy-cm. FINDINGS: PARANASAL SINUSES: Left maxillary sinus disease. Obliterated of the left ostiomeatal complex. BONES: Nondisplaced facial bone fracture. Multiple dental caries in the upper jaw. ORBITS AND SUPERFICIAL SOFT TISSUES: The optic globes and orbits are normal. Soft tissue swelling anterior to the left maxillary sinus and inferior orbit. Fat stranding anterior to the left upper and lower jaw. Otherwise, The superficial soft tissues are normal. VISUALIZED MASTOIDS: Well aerated. LIMITED VISUALIZED BRAIN PARENCHYMA: Normal. IMPRESSION: Left nasal bone fracture. Left maxillary sinus disease. Obliteration of the left ostiomeatal complex. Soft tissue swelling anterior to the left orbit and left maxillary sinus. CT facial & cervical spine wo Ordering provider: Thao Callahan History: . fall . Comparison: None. Technique: CT of the cervical spine was performed without contrast. Sagittal and coronal reformatted images were also obtained and reviewed. Automated exp osure control and iterative reconstruction technique were employed. The dose- length product was 222.96 mGy-cm. FINDINGS: VERTEBRAE: No subluxation or acute fracture. The occipital condyles are intact. 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 DISC SPACES: Narrowing of the disc C3-C4, C4-C5, C5-C6, C6-C7 and C7-T1. Multilevel facet joint disease. Multilevel uncovertebral joint osteoarthritic changes. Narrowing of the left foramina at the level of C3-C4. Bilateral narrowing of the foramina at the level of C4-C5 more on the left side. Bilateral narrowing of the foramina at the level of C5-C6 and C6-C7 PARASPINOUS SOFT TISSUES: Normal. IMPRESSION: No acute osseous abnormality cervical spine. Reviewed, dictated and finalized at location A. [facility] Assessment and Plan Assessment and plan (1) Syncope: Code(s): R55 - Syncope and collapse Status: Acute Assessment and Plan: * Head/Cervical spine/ facial bone CT was negative for any acute osseous findings * Head CT was negative for any acute intracranial process * Obtain orthostatic B/P q shift * CTA of brain and Carotid ordered * Plan for MRI of brain and brain stem * Echo with bubble study ordered * Continue cardiac monitoring * Will obtain EEG * PT and OT ordered * Continue fall precautions (2) Closed fracture nasal bone: Code(s): S02.2XXA - Fracture of nasal bones, initial encounter for closed fracture Status: Acute Assessment and Plan: * CT of the head/ cervical spine/ facial bone revealed a left nasal bone fracture, left maxillary sinus disease, obliteration of the left ostiomeatal complex, soft tissue swelling anterior to the left orbit and left maxillary sinus * Continue pain control. (3) Contusion of face: Code(s): S00.83XA - Contusion of other part of head, initial encounter Status: Acute Assessment and Plan: * Left orbital contusion s/p ground-level fall. (4) Hypomagnesemia: Code(s): E83.42 - Hypomagnesemia Status: Acute Assessment and Plan: * Initial Magnesium 0.9 * 3 gm Magnesium given * Continue to trend (5) Type 2 diabetes mellitus without complications: Onset Date: 10/2023 Code(s): E11.9 - Type 2 diabetes mellitus without complications Status: Chronic Assessment and Plan: * Blood sugars ranging 103-125 * Hgb A1C 6.5 on 11/17/23 * Will recheck Hgb A1C today * Accu checks AC/HS * low dose SSI ordered * hypoglycemic protocol in place * Diabetic diet ordered * Hold Metformin (6) Pure hypercholesterolemia, unspecified: Code(s): E78.00 - Pure hypercholesterolemia, unspecified Status: Chronic Assessment and Plan: * continue atorvastatin (7) Hypertension: Code(s): I10 - Essential (primary) hypertension Status: Chronic Assessment and Plan: * Blood pressure ranging 129/63-181/69 * Continue Lisinopril and Spironolactone
[2024-04-30 09:23] LABS: Hemoglobin A1C 6.1 % (<5.7)
[2024-04-30 09:52] LABS: Thyroid Stimulating Hormone 0.683 uIU/mL (0.465-4.680)
[2024-04-30] MEDS: ATORVASTATIN 40 MG TABLET PO (10:23)
[2024-04-30] MEDS: lisinopriL 10 MG TABLET PO (10:23)
[2024-04-30] MEDS: ENOXAPARIN 40 MG/0.4 ML SYRINGE SUB-Q (10:25)
[2024-04-30 11:43] LABS: Magnesium 1.5 mg/dL (1.6-2.3)
[2024-04-30 12:33] LABS: Glucose Point of Care 103 mg/dl (65-105)
[2024-04-30 16:58] LABS: Glucose Point of Care 107 mg/dl (65-105)
[2024-04-30 21:38] LABS: Glucose Point of Care 121 mg/dl (65-105)
[2024-05-01] VITALS (11 sets, daily range): BP systolic 106–131; BP diastolic 46–60; PULSE 69–100; RESP 16–18; TEMP 36.3–36.6; O2SAT 96–97
[2024-05-01 06:41] LABS: Basophils Percent Auto 0.8 % (0.2-1.2); Eosinophils Absolute Auto 0.2 K/mm3 (0-0.3); Eosinophils Percent Auto 4.5 % (0-4.4); Hematocrit 35.6 % (37.0-47.0); Immature Granulocyte Absolute 0.01 K/mm3 (0.00-0.031); Immature Granulocyte Percent A 0.3 % (0-0.5); Lymphocytes Absolute Auto 1.37 K/mm3 (0.9-3.2); Lymphocytes Percent Auto 34.6 % (18.3-44.2); Mean Corpuscular HGB Conc 33.7 g/dl (32-36); Mean Corpuscular Hemoglobin 30.5 pg (26-34); Mean Corpuscular Volume 90.4 fl (80-100); Mean Platelet Volume 12.2 fl (7.4-10.4); Monocytes Absolute Auto 0.4 K/mm3 (0.1-0.6); Monocytes Percent Auto 9.3 % (2.6-8.5); Neutrophils Percent Auto 50.5 % (45.5-73.1); Platelet Count Result 183 k/mm3 (150-375); Red Blood Count 3.94 M/mm3 (4.2-5.4); Red Cell Distribution Width 12.2 % (11.5-14.5)
[2024-05-01 06:47] LABS: Alanine Aminotransferase 14 U/L (6-35); Albumin Level 3.5 g/dL (3.5-5.1); Alkaline Phosphatase 87 U/L (38-126); Anion Gap 2 mmol/L (4-12); Aspartate Amino Transferase 21 U/L (14-36); Bilirubin,Total 2.5 mg/dL (0.2-1.3); Blood Urea Nitrogen 9 mg/dL (7-17); Calcium 8.5 mg/dL (8.4-10.2); Carbon Dioxide 30 mmol/L (22-30); Chloride 105 mmol/L (98-107); Estimated CRCL calculation 49 ml/min; Estimated Glomerular Filt Rate > 60; Glucose 109 mg/dL (65-110); Magnesium 1.3 mg/dL (1.6-2.3); Potassium 4.1 mmol/L (3.4-5.0); Sodium 137 mmol/L (137-145)
--- NOTE | 2024-05-01 08:35 | P.PNIM_ITS ---
Progress Note: A&P Assessment and Plan (1) Syncope: Code(s): R55 - Syncope and collapse Status: Acute Assessment and Plan: * Head/Cervical spine/ facial bone CT was negative for any acute osseous findings * Head CT was negative for any acute intracranial process * Orthostatic blood pressures were normal and did not show a drop in systolic blood pressure, infact increased with position change, heart rate stayed normal. * CTA of brain and Carotid shown a normal brain, no aneurysm or significant intracranial arterial stenosis, 12% stenosis noted in the proximal left internal carotid artery, 0% stenosis in the proximal right internal carotid artery. * Will hold off on MRI of the brain and brainstem as patient has metal tubes in her ears due to hearing loss and she doesn't want these to move in fear of losing all her hearing. * Echo with bubble study shown normal LV systolic function with an estimated EF of 65-70%, grade 1 diastolic dysfunction, mild pulmonary edema, negative bubble study * Continue cardiac monitoring * Will obtain EEG for possible seizure activity, likely due to hypomagnesemia * Neurology consulted * Initial Magnesium level 0.9 and she was given 3 gm of IV Magnesium in the ER. * Hold spironolactone and doxycycline as these medications can cause hypomagnesemia leading to potential seizures. * PT and OT ordered * Continue fall precautions (2) Hypomagnesemia: Code(s): E83.42 - Hypomagnesemia Status: Acute Assessment and Plan: * Magnesium today 1.3 * 3 gm Magnesium given again today * Hold spironolactone and doxycycline as this can cause low magnesium levels * Continue to trend (3) Closed fracture nasal bone: Code(s): S02.2XXA - Fracture of nasal bones, initial encounter for closed fracture Status: Acute Assessment and Plan: * CT of the head/ cervical spine/ facial bone revealed a left nasal bone fracture, left maxillary sinus disease, obliteration of the left ostiomeatal complex, soft tissue swelling anterior to the left orbit and left maxillary sinus * Continue pain control. (4) Contusion of face: Code(s): S00.83XA - Contusion of other part of head, initial encounter Status: Acute Assessment and Plan: * Left orbital contusion s/p ground-level fall. (5) Type 2 diabetes mellitus without complications: Onset Date: 10/2023 Code(s): E11.9 - Type 2 diabetes mellitus without complications Status: Chronic Assessment and Plan: * Blood sugars ranging 107-121 * Hgb A1C 6.5 on 11/17/23 * Will recheck Hgb A1C today * Accu checks AC/HS * low dose SSI ordered * hypoglycemic protocol in place * Diabetic diet ordered * Hold Metformin (6) Pure hypercholesterolemia, unspecified: Code(s): E78.00 - Pure hypercholesterolemia, unspecified Status: Chronic Assessment and Plan: * continue atorvastatin (7) Hypertension: Code(s): I10 - Essential (primary) hypertension Status: Chronic Assessment and Plan: * Blood pressure ranging 106/49-135/62 * Continue Lisinopril Time Spent With Patient Time with patient: Greater than 35 minutes Subjective Date/time seen: 05/01/24 08:35 Interval history: Interval history: This is a 73 year old female with a significant past medical history of kidney stones, IBS, hyperlipidemia, type 2 DM, hypertension for evaluation after a fall. Patient states that all she remembers is that she was bending over trimming landscaping. found her slumped over and brought her in the house. She states her reported that she was confused right after that however she could not remember anything about that. She was only confused for a period of time before she came back to herself. She states she was sitting in the living room chair and her was next to her when she asked what happened. She reports that she bit her lip and does have a swollen bottom lip with scabbing. She was able to move all extremities and did not have any neuro deficits at the time. Work up in the hospital included Chest x-ray that shows bilateral prominent bronchovascular markings in the lower lobes with underlying interstitial changes. Head CT was negative for any acute intracranial findings. Head/Cervical spine/facial bones CT was negative for any acute osseous abnormality of the cervical spine, shown left nasal bone fracture, left maxillary sinus disease, obliteration of the left ostiomeatal complex, soft tissue swelling anterior to the left orbit and left maxillary sinus. Initial labs shown a WBC 8.8, RBC 4.18, Magnesium 0.9, total bili 1.8. UA shown 1+ urine ketones, 1+ urine blood, 3-5 urine RBC, otherwise negative. EKG shown NSR with rate of 93, QTc 418. Patient was given IVF, [place], potassium, and magnesium 3 gm in the ER. After careful review of her record it shows she was on spironolactone which can also deplete her magnesium and she is also on doxycycline which was prescribed by her helminthology teacher for an oral skin issue. Doxycycline can also deplete the magnesium. Both of these have been held. Subjective: Patient denies any new complaints today. Labs reviewed. Review of Systems Review of Systems: All systems reviewed & are unremarkable except as noted in HPI and below Constitutional: Constitutional: Reports as per HPI and Reports no additional constitutional complaints Eyes: Eyes: Reports as per HPI and Reports no additional eye complaints ENT: Reports system reviewed and no additional complaints, except as documented and Reports as per HPI Cardiovascular: Cardiovascular: Reports as per HPI and Reports no additional cardiovascular complaints Respiratory: Respiratory: Reports as per HPI and Reports no additional respiratory complaints Gastrointestinal: Gastrointestinal: Reports as per HPI and Reports no additional gastrointestinal complaints Genitourinary: Genitourinary: Reports no additional female genitourinary complaints and Reports as per HPI Musculoskeletal: Musculoskeletal: Reports no additional musculoskeletal complaints and Reports as per HPI Integumentary/Breasts: Skin/Breast: Reports system reviewed and no additional complaints, except as docu and Reports as per HPI Neurologic: Reports system reviewed and no additional complaints, except as documented and Reports as per HPI Psychiatric: Psychiatric: Reports no additional psychiatric complaints and Reports as per HPI Exam Narrative: General: In no acute distress, well nourished Cardiac: Normal S1 and S2. RRR, No murmur, gallops or friction rubs, peripheral pulses intact. Respiratory: Lungs clear to auscultation, no adventitious lung sounds, currently on room air Gastrointestinal: soft, non-distended, non-tender, normoactive bowel sounds. : voiding without difficulty. Skin:ecchymosis over left eye, abrasion on nose and scab on bottom lip with swelling Neuro: Alert and oriented x4 Objective Data Vital Signs Vital Signs: Vital Signs - 24 hr 04/30/24 09:38 04/30/24 11:20 04/30/24 13:58 Temperature 98.4 F Pulse Rate 79 Respiratory Rate 16 Blood Pressure 120/60 Pulse Oximetry 96 Oxygen Delivery Room Air Room Air 04/30/24 12:00 04/30/24 16:00 04/30/24 21:54 Temperature 98.1 F Pulse Rate 79 68 80 Respiratory Rate 18 Blood Pressure 125/52 L Pulse Oximetry 97 Oxygen Delivery 04/30/24 21:59 04/30/24 22:03 05/01/24 00:00 Temperature Pulse Rate 76 Respiratory Rate Blood Pressure 135/62 131/61 Pulse Oximetry Oxygen Delivery 05/01/24 04:00 05/01/24 05:27 Temperature 97.5 F L Pulse Rate 73 76 Respiratory Rate 18 Blood Pressure 106/49 L Pulse Oximetry 96 Oxygen Delivery Intake/Output Intake/Output: Intake & Output 04/28/24 04/29/24 04/30/24 05/01/24 23:59 23:59 23:59 23:59 Intake Total 990 350 Balance 990 350 Meds/Results Medications: Active Medications Generic Name Dose Route Start Last Admin Trade Name Freq PRN Reason Stop Dose Admin Acetaminophen 650 mg 04/30/24 08:25 Acetaminophen 325 Mg Tablet PO Q4H PRN Mild Pain (1-3) or Fever Hydrocodone Bitart/Acetaminophen 1 tab 04/30/24 00:53 04/30/24 13:09 Hydrocodone/Acetaminophen (*Crx) 5-325 Mg Tablet PO 1 tab Q4H PRN Administration Pain Rated 4-6 Atorvastatin Calcium 40 mg 04/30/24 09:00 04/30/24 10:23 Atorvastatin 40 Mg Tablet PO 40 mg DAILY DEEDEE Administration Dextrose 12.5 gm 04/30/24 08:25 Dextrose 50% 25 Gm/50 Ml Syringe IV PUSH PRN PRN Hypoglycemia Protocol Enoxaparin Sodium 40 mg 04/30/24 09:00 04/30/24 10:25 Enoxaparin 40 Mg/0.4 Ml Syringe SUB-Q 40 mg DAILY DEEDEE Administration Glucagon 1 mg 04/30/24 08:25 Glucagon For Inj 1 Mg Vial IM PRN PRN Hypoglycemia Protocol Glucose 15 gm 04/30/24 08:25 Glucose Oral Gel 15 Gm Of Glucse In 37.5 Gm Tube PO PRN PRN Hypoglycemia Protocol Dextrose 1,000 mls @ 100 mls/hr 04/30/24 08:25 Dextrose 5% 1,000 Ml IVPB PRN PRN Hypoglycemia Protocol Magnesium Sulfate/Dextrose 3 gm in 100 mls @ 33.333 mls/hr 05/01/24 08:34 Magnesium Sulfate 3gm/[id number] IVPB 05/01/24 11:33 ONCE ONE Insulin Aspart 2 - 5 units 04/30/24 09:05 04/30/24 16:56 Insulin Aspart (*Bkc) 100 Units/Ml SUB-Q Not Given TIDWM DEEDEE Protocol Insulin Aspart 1 - 2 units 04/30/24 21:00 04/30/24 22:34 Insulin Aspart (*Bkc) 100 Units/Ml SUB-Q Not Given HS DEEDEE Protocol Lisinopril 10 mg 04/30/24 09:00 04/30/24 10:23 Lisinopril 10 Mg Tablet PO 10 mg DAILY DEEDEE Administration Ondansetron HCl 4 mg 04/30/24 00:53 Ondansetron Inj 4 Mg/2 Ml Vial IV PUSH Q4H PRN Nausea Perflutren Lipid Microsphere 0 ml 04/30/24 08:28 Perflutren Lipid Microspheres 1.5 Ml Vial Diluted To 10 Ml Total Volume IV PUSH 05/03/24 08:28 ONCE PRN adequate visualization Protocol Spironolactone 50 mg 04/30/24 08:33 Spironolactone 50 Mg Tablet PO DAILY PRN SWELLING Radiology Results: ITS Impressions Chest X-Ray 04/29/24 19:47 IMPRESSION: Bilateral prominent bronchovascular markings in the lower lobes with underlying interstitial changes. Differential include bronchitis versus early pneumonia versus atelectasis. Head CT 04/29/24 21:45 IMPRESSION: No acute intracranial findings. Head/Cervical Spine/Facial Bones CT 04/29/24 22:46 IMPRESSION: Left nasal bone fracture. Left maxillary sinus disease. Obliteration of the left ostiomeatal complex. Soft tissue swelling anterior to the left orbit and left maxillary sinus. CT facial & cervical spine wo Ordering provider: Thao Callahan History: . fall . Comparison: None. Technique: CT of the cervical spine was performed without contrast. Sagittal and coronal reformatted images were also obtained and reviewed. Automated exposure control and iterative reconstruction technique were employed. The dose- length product was 222.96 mGy-cm. FINDINGS: [place]BRA[place]: No subluxation or acute fracture. The occipital condyles are intact. 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 DISC SPACES: Narrowing of the disc C3-C4, C4-C5, C5-C6, C6-C7 and C7-T1. Multilevel facet joint disease. Multilevel uncovertebral joint osteoarthritic changes. Narrowing of the left foramina at the level of C3-C4. Bilateral narrowing of the foramina at the level of C4-C5 more on the left side. Bilateral narrowing of the foramina at the level of C5-C6 and C6-C7 PARASPINOUS SOFT TISSUES: Normal. IMPRESSION: No acute osseous abnormality cervical spine. Head/Neck CTA 04/30/24 10:09 IMPRESSION: 1. Normal brain. 2. No aneurysm or significant intracranial arterial stenosis. 3. 0% stenosis of the proximal right internal carotid artery relative to normal distal artery lumen diameter (NASCET criteria). 4. 12% stenosis of the proximal left internal carotid artery relative to normal distal artery lumen diameter. Labs Labs: Laboratory Results - last 24 hr 04/30/24 04/30/24 04/30/24 05:48 10:54 12:30 WBC RBC Hgb Hct MCV MCH MCHC RDW Plt Count MPV Immature Gran % (Auto) Neut % (Auto) Lymph % (Auto) [place] % (Auto) Eos % (Auto) Baso % (Auto) Lymph # (Auto) [place] # (Auto) Eos # (Auto) Baso # (Auto) Abs Immat Gran (auto) Absolute Neuts (auto) Absolute Nucleated RBC Nucleated RBC % Sodium Potassium Chloride Carbon Dioxide Anion Gap BUN Creatinine Estim Creat Clear Calc Estimated GFR Glucose POC Capillary Glucose 103 Hemoglobin A1c 6.1 H Calcium Magnesium 1.5 L Total Bilirubin AST ALT Alkaline Phosphatase Total Protein Albumin TSH 0.683 04/30/24 04/30/24 05/01/24 16:56 20:59 06:15 WBC 4.0 L RBC 3.94 L Hgb 12.0 Hct 35.6 L MCV 90.4 MCH 30.5 MCHC 33.7 RDW 12.2 Plt Count 183 MPV 12.2 H Immature Gran % (Auto) 0.3 Neut % (Auto) 50.5 Lymph % (Auto) 34.6 [place] % (Auto) 9.3 H Eos % (Auto) 4.5 H Baso % (Auto) 0.8 Lymph # (Auto) 1.37 [place] # (Auto) 0.4 Eos # (Auto) 0.2 Baso # (Auto) 0.0 Abs Immat Gran (auto) 0.01 Absolute Neuts (auto) 2.0 Absolute Nucleated RBC 0.000 Nucleated RBC % 0.0 Sodium 137 Potassium 4.1 Chloride 105 Carbon Dioxide 30 Anion Gap 2 L BUN 9 Creatinine 0.90 Estim Creat Clear Calc 49 Estimated GFR > 60 Glucose 109 POC Capillary Glucose 107 H 121 H Hemoglobin A1c Calcium 8.5 Magnesium 1.3 L Total Bilirubin 2.5 H AST 21 ALT 14 Alkaline Phosphatase 87 Total Protein 6.0 L Albumin 3.5 TSH Quality VTE Prophylaxis VTE prophylaxis: pharmacologic ordered
[2024-05-01 09:01] LABS: Glucose Point of Care 108 mg/dl (65-105)
[2024-05-01] MEDS: ENOXAPARIN 40 MG/0.4 ML SYRINGE SUB-Q (09:17)
[2024-05-01] MEDS: lisinopriL 10 MG TABLET PO (09:17)
[2024-05-01] MEDS: ATORVASTATIN 40 MG TABLET PO (09:17)
[2024-05-01] MEDS: MAGNESIUM SULFATE 3GM/D5W100ML 3 GM/100 ML BAG IVPB (09:18)
[2024-05-01 10:03] LABS: Phosphorus 4.1 mg/dL (2.5-4.5)
[2024-05-01] MEDS: ACETAMINOPHEN 325 MG TABLET 650 MG PO ×2 (11:52→20:45)
[2024-05-01 12:15] LABS: Glucose Point of Care 183 mg/dl (65-105)
[2024-05-01 17:20] LABS: Glucose Point of Care 102 mg/dl (65-105)
[2024-05-01 22:40] LABS: Glucose Point of Care 138 mg/dl (65-105)
[2024-05-02] VITALS (13 sets, daily range): BP systolic 129–150; BP diastolic 43–63; PULSE 64–83; RESP 14–18; TEMP 36.4–36.5; O2SAT 92–100
[2024-05-02 05:51] LABS: Basophils Percent Auto 0.9 % (0.2-1.2); Eosinophils Absolute Auto 0.2 K/mm3 (0-0.3); Eosinophils Percent Auto 5.7 % (0-4.4); Hematocrit 35.5 % (37.0-47.0); Hemoglobin 11.7 g/dL (12.0-15.0); Immature Granulocyte Absolute 0.01 K/mm3 (0.00-0.031); Immature Granulocyte Percent A 0.3 % (0-0.5); Lymphocytes Absolute Auto 1.55 K/mm3 (0.9-3.2); Lymphocytes Percent Auto 49.1 % (18.3-44.2); Mean Corpuscular Hemoglobin 29.9 pg (26-34); Mean Corpuscular Volume 90.8 fl (80-100); Mean Platelet Volume 11.9 fl (7.4-10.4); Monocytes Absolute Auto 0.3 K/mm3 (0.1-0.6); Monocytes Percent Auto 10.4 % (2.6-8.5); Neutrophils Absolute Auto 1.1 K/mm3 (1.3-6.7); Neutrophils Percent Auto 33.6 % (45.5-73.1); Platelet Count Result 181 k/mm3 (150-375); Red Blood Count 3.91 M/mm3 (4.2-5.4); Red Cell Distribution Width 12.2 % (11.5-14.5); White Blood Count 3.2 K/mm3 (4.5-10.0)
[2024-05-02 06:08] LABS: Alanine Aminotransferase 13 U/L (6-35); Albumin Level 3.5 g/dL (3.5-5.1); Alkaline Phosphatase 87 U/L (38-126); Anion Gap 2 mmol/L (4-12); Aspartate Amino Transferase 20 U/L (14-36); Bilirubin,Total 2.1 mg/dL (0.2-1.3); Blood Urea Nitrogen 11 mg/dL (7-17); Calcium 8.5 mg/dL (8.4-10.2); Carbon Dioxide 28 mmol/L (22-30); Chloride 106 mmol/L (98-107); Estimated CRCL calculation 55 ml/min; Estimated Glomerular Filt Rate > 60; Glucose 115 mg/dL (65-110); Magnesium 1.6 mg/dL (1.6-2.3); Potassium 3.5 mmol/L (3.4-5.0); Sodium 136 mmol/L (137-145)
[2024-05-02 09:01] LABS: Glucose Point of Care 116 mg/dl (65-105)
[2024-05-02] MEDS: ATORVASTATIN 40 MG TABLET PO (09:58)
[2024-05-02] MEDS: ENOXAPARIN 40 MG/0.4 ML SYRINGE SUB-Q (09:58)
[2024-05-02] MEDS: lisinopriL 10 MG TABLET PO (09:58)
--- NOTE | 2024-05-02 11:06 | P.PNIM_ITS ---
Progress Note: A&P Assessment and Plan (1) Syncope: Code(s): R55 - Syncope and collapse Status: Acute Assessment and Plan: Loss of consciousness with injury. Unclear etiology 04/[address] No acute intracranial findings. 04/30 CTA HEAD/Neck 1. Normal brain. 2. No aneurysm or significant intracranial arterial stenosis. 3. 0% stenosis of the proximal right internal carotid artery relative to normal distal artery lumen diameter (NASCET criteria). 4. 12% stenosis of the proximal left internal carotid artery relative to normal distal artery lumen diameter. 05/01 MRI brain no acute findings, normal aging brain. Patient initially was concerned about having MRI due to tubes in her ears that are reportedly metal Orthostatic blood pressures were normal and did not show a drop in systolic blood pressure, in fact increased with position change, heart rate stayed normal. * Echo with bubble study shown normal LV systolic function with an estimated EF of 65-70%, grade 1 diastolic dysfunction, mild pulmonary HTN, negative bubble study * Continue cardiac monitoring, NSR on telemetry * EEG for possible seizure activity. * Low magnesium increases risk of seizure activity and arrhythmias * Event monitor after discharge * Neurology consulted * Initial Magnesium level 0.9 and she was given 3 gm of IV Magnesium in the ER. 1.6 today. 2G IV today. Likely give 200mg mag daily for a week and repeat labs outpatient * Hold spironolactone and doxycycline as these medications can cause hypomagnesemia * PT and OT ordered * Continue fall precautions (2) Hypomagnesemia: Code(s): E83.42 - Hypomagnesemia Status: Acute Assessment and Plan: * Magnesium today 1.3 * 3 gm Magnesium given again today * Hold spironolactone and doxycycline as this can cause low magnesium levels * Continue to trend (3) Closed fracture nasal bone: Code(s): S02.2XXA - Fracture of nasal bones, initial encounter for closed fracture Status: Acute Assessment and Plan: * CT of the head/ cervical spine/ facial bone revealed a left nasal bone fracture, left maxillary sinus disease, obliteration of the left ostiomeatal complex, soft tissue swelling anterior to the left orbit and left maxillary sinus * Continue pain control. * ENT follow up outpatient (4) Contusion of face: Code(s): S00.83XA - Contusion of other part of head, initial encounter Status: Acute Assessment and Plan: * Left orbital contusion s/p ground-level fall. (5) Type 2 diabetes mellitus without complications: Onset Date: 10/2023 Code(s): E11.9 - Type 2 diabetes mellitus without complications Status: Chronic Assessment and Plan: * Blood sugars ranging 107-121 * Hgb A1C 6.5 on 11/17/23 * Will recheck Hgb A1C today * Accu checks AC/HS * low dose SSI ordered * hypoglycemic protocol in place * Diabetic diet ordered * Hold Metformin (6) Pure hypercholesterolemia, unspecified: Code(s): E78.00 - Pure hypercholesterolemia, unspecified Status: Chronic Assessment and Plan: * continue atorvastatin (7) Hypertension: Code(s): I10 - Essential (primary) hypertension Status: Chronic Assessment and Plan: * Blood pressure ranging 106/49-142/50 * Continue Lisinopril Time Spent With Patient Time: 58 minutes Subjective Date/time seen: 05/02/24 11:06 Interval history: Left eye pain, bruising to left eye and face. Lip swelling. No dizziness or other symptoms. Reports chronic diarrhea 2/2 metformin but otherwise has been asymptomatic Hospital course: This is a 73 year old female with a significant past medical history of kidney stones, IBS, hyperlipidemia, type 2 DM, hypertension for evaluation after a fall. Patient states that all she remembers is that she was bending over trimming landscaping. found her slumped over and brought her in the house. She states her reported that she was confused right after and does not not remember anything about the event. She reports that she bit her lip and does have a swollen bottom lip with scabbing. She was able to move all extremities and did not have any neuro deficits at the time. Work up in the hospital included Chest x-ray that shows bilateral prominent bronchovascular markings in the lower lobes with underlying interstitial changes. Head CT was negative for any acute intracranial findings. Head/Cervical spine/facial bones CT was negative for any acute osseous abnormality of the cervical spine, shown left nasal bone fracture, left maxi llary sinus disease, obliteration of the left ostiomeatal complex, soft tissue swelling anterior to the left orbit and left maxillary sinus. Initial labs shown a WBC 8.8, RBC 4.18, Magnesium 0.9, total bili 1.8. UA shown 1+ urine ketones, 1+ urine blood, 3-5 urine RBC, otherwise negative. EKG shown NSR with rate of 93, QTc 418. Patient was given IVF, [place], potassium, and magnesium 3 gm in the ER. Home medications include spironolactone, metformin, and doxycycline. Doxycycline which was prescribed by her car hopper for an oral skin issue. She also reports diarrhea related to metformin. Spironolactone and doxycycline have the potential to decrease magnesium levels so those have been held for now. Subjective: Patient denies any new complaints today. Labs reviewed. Exam Narrative: General: In no acute distress, well nourished Cardiac: Normal S1 and S2. RRR, No murmur, gallops or friction rubs, peripheral pulses intact. Respiratory: Lungs clear to auscultation, no adventitious lung sounds, currently on room air Gastrointestinal: soft, non-distended, non-tender, normoactive bowel sounds. : voiding without difficulty. Skin:ecchymosis over left eye, abrasion on nose and scab on bottom lip with swelling Neuro: Alert and oriented x4, moves all extremities. No focal neurologic deficit Objective Data Vital Signs Vital Signs: Vital Signs - 24 hr 05/01/24 16:00 05/01/24 12:00 05/01/24 16:00 Temperature 97.4 F L Pulse Rate 70 75 69 Respiratory Rate 16 Blood Pressure 107/46 L Pulse Oximetry 97 05/01/24 20:38 05/01/24 20:00 05/01/24 20:41 Temperature 97.9 F 97.9 F 97.9 F Pulse Rate 70 70 74 Respiratory Rate 18 18 18 Blood Pressure 116/54 L 116/54 L 125/52 L Pulse Oximetry 96 96 96 05/01/24 20:43 05/01/24 20:00 05/02/24 00:00 Temperature 97.9 F Pulse Rate 76 78 70 Respiratory Rate 18 Blood Pressure 128/55 L Pulse Oximetry 97 05/02/24 04:00 05/02/24 04:54 Temperature 97.6 F Pulse Rate 67 64 Respiratory Rate 18 Blood Pressure 129/58 L Pulse Oximetry 99 Intake/Output Intake/Output: Intake & Output 04/29/24 04/30/24 05/01/24 05/02/24 23:59 23:59 23:59 23:59 Intake Total 990 1630 340 Balance 990 1630 340 Meds/Results Medications: Active Medications Generic Name Dose Route Start Last Admin Trade Name Freq PRN Reason Stop Dose Admin Acetaminophen 650 mg 04/30/24 08:25 05/01/24 20:45 Acetaminophen 325 Mg Tablet PO 650 mg Q4H PRN Administration Mild Pain (1-3) or Fever Hydrocodone Bitart/Acetaminophen 1 tab 04/30/24 00:53 04/30/24 13:09 Hydrocodone/Acetaminophen (*Crx) 5-325 Mg Tablet PO 1 tab Q4H PRN Administration Pain Rated 4-6 Atorvastatin Calcium 40 mg 04/30/24 09:00 05/02/24 09:58 Atorvastatin 40 Mg Tablet PO 40 mg DAILY DEEDEE Administration Dextrose 12.5 gm 04/30/24 08:25 Dextrose 50% 25 Gm/50 Ml Syringe IV PUSH PRN PRN Hypoglycemia Protocol Enoxaparin Sodium 40 mg 04/30/24 09:00 05/02/24 09:58 Enoxaparin 40 Mg/0.4 Ml Syringe SUB-Q 40 mg DAILY DEEDEE Administration Glucagon 1 mg 04/30/24 08:25 Glucagon For Inj 1 Mg Vial IM PRN PRN Hypoglycemia Protocol Glucose 15 gm 04/30/24 08:25 Glucose Oral Gel 15 Gm Of Glucse In 37.5 Gm Tube PO PRN PRN Hypoglycemia Protocol Dextrose 1,000 mls @ 100 mls/hr 04/30/24 08:25 Dextrose 5% 1,000 Ml IVPB PRN PRN Hypoglycemia Protocol Insulin Aspart 2 - 5 units 04/30/24 09:05 05/02/24 09:56 Insulin Aspart (*Bkc) 100 Units/Ml SUB-Q Not Given TIDWM [facility] Protocol Insulin Aspart 1 - 2 units 04/30/24 21:00 05/01/24 22:56 Insulin Aspart (*Bkc) 100 Units/Ml SUB-Q Not Given HS [facility] Protocol Lisinopril 10 mg 04/30/24 09:00 05/02/24 09:58 Lisinopril 10 Mg Tablet PO 10 mg DAILY DEEDEE Administration Ondansetron HCl 4 mg 04/30/24 00:53 Ondansetron Inj 4 Mg/2 Ml Vial IV PUSH Q4H PRN Nausea Perflutren Lipid Microsphere 0 ml 04/30/24 08:28 Perflutren Lipid Microspheres 1.5 Ml Vial Diluted To 10 Ml Total Volume IV PUSH 05/03/24 08:28 ONCE PRN adequate visualization Protocol Spironolactone 50 mg 04/30/24 08:33 Spironolactone 50 Mg Tablet PO DAILY PRN SWELLING Radiology Results: ITS Impressions Chest X-Ray 04/29/24 19:47 IMPRESSION: Bilateral prominent bronchovascular markings in the lower lobes with underlying interstitial changes. Differential include bronchitis versus early pneumonia versus atelectasis. Head CT 04/29/24 21:45 IMPRESSION: No acute intracranial findings. Head/Cervical Spine/Facial Bones CT 04/29/24 22:46 IMPRESSION: Left nasal bone fracture. Left maxillary sinus disease. Obliteration of the left ostiomeatal complex. Soft tissue swelling anterior to the left orbit and left maxillary sinus. CT facial & cervical spine wo Ordering provider: Thao Callahan History: . fall . Comparison: None. Technique: CT of the cervical spine was performed without contrast. Sagittal and coronal reformatted images were also obtained and reviewed. Automated exposure control and iterative reconstruction technique were employed. The dose- length product was 222.96 mGy-cm. FINDINGS: VERTEBRAE: No subluxation or acute fracture. The occipital condyles are intact. 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 DISC SPACES: Narrowing of the disc C3-C4, C4-C5, C5-C6, C6-C7 and C7-T1. Multilevel facet joint disease. Multilevel uncovertebral joint osteoarthritic changes. Narrowing of the left foramina at the level of C3-C4. Bilateral narrowing of the foramina at the level of C4-C5 more on the left side. Bilateral narrowing of the foramina at the level of C5-C6 and C6-C7 PARASPINOUS SOFT TISSUES: Normal. IMPRESSION: No acute osseous abnormality cervical spine. Head/Neck CTA 04/30/24 10:09 IMPRESSION: 1. Normal brain. 2. No aneurysm or significant intracranial arterial stenosis. 3. 0% stenosis of the proximal right internal carotid artery relative to normal distal artery lumen diameter (NASCET criteria). 4. 12% stenosis of the proximal left internal carotid artery relative to normal distal artery lumen diameter. Brain MRI 05/01/24 11:05 IMPRESSION: 1. Normal aging brain. Labs Labs: Laboratory Results - last 24 hr 05/01/24 05/01/24 05/01/24 12:10 17:10 22:37 WBC RBC Hgb Hct MCV MCH MCHC RDW Plt Count MPV Immature Gran % (Auto) Neut % (Auto) Lymph % (Auto) [place] % (Auto) Eos % (Auto) Baso % (Auto) Lymph # (Auto) [place] # (Auto) Eos # (Auto) Baso # (Auto) Abs Immat Gran (auto) Absolute Neuts (auto) Absolute Nucleated RBC Nucleated RBC % Sodium Potassium Chloride Carbon Dioxide Anion Gap BUN Creatinine Estim Creat Clear Calc Estimated GFR Glucose POC Capillary Glucose 183 H 102 138 H Calcium Magnesium Total Bilirubin AST ALT Alkaline Phosphatase Total Protein Albumin 05/02/24 05/02/24 05:38 08:53 WBC 3.2 L RBC 3.91 L Hgb 11.7 L Hct 35.5 L MCV 90.8 MCH 29.9 MCHC 33.0 RDW 12.2 Plt Count 181 MPV 11.9 H Immature Gran % (Auto) 0.3 Neut % (Auto) 33.6 L Lymph % (Auto) 49.1 H [place] % (Auto) 10.4 H Eos % (Auto) 5.7 H Baso % (Auto) 0.9 Lymph # (Auto) 1.55 [place] # (Auto) 0.3 Eos # (Auto) 0.2 Baso # (Auto) 0.0 Abs Immat Gran (auto) 0.01 Absolute Neuts (auto) 1.1 L Absolute Nucleated RBC 0.000 Nucleated RBC % 0.0 Sodium 136 L Potassium 3.5 Chloride 106 Carbon Dioxide 28 Anion Gap 2 L BUN 11 Creatinine 0.80 Estim Creat Clear Calc 55 Estimated GFR > 60 Glucose 115 H POC Capillary Glucose 116 H Calcium 8.5 Magnesium 1.6 Total Bilirubin 2.1 H AST 20 ALT 13 Alkaline Phosphatase 87 Total Protein 6.0 L Albumin 3.5 Quality VTE Prophylaxis VTE prophylaxis: pharmacologic ordered Hospitalist MIPS Advance Care Plan I have confirmed that the patient's Advanced Care Plan is present, code status is documented, or surrogate decision maker is listed in patient medical record.: Yes Medication Reconciliation I have utilized all available resources to obtain, update and review the patients current medications (includes all prescriptions, OTC, herbals, cannabis, and nutritional supplements).: Yes
[2024-05-02 12:17] LABS: Glucose Point of Care 180 mg/dl (65-105)
[2024-05-02] MEDS: MAGNESIUM SULF 2 GM/WATER 50ML 2 GM/50 ML BAG IVPB (12:25)
[2024-05-02 16:32] LABS: Glucose Point of Care 127 mg/dl (65-105)
--- NOTE | 2024-05-02 18:44 | P.CONNEU_ITS ---
Assessment and Plan Assessment and plan (1) Syncope: Code(s): R55 - Syncope and collapse Status: Acute (2) Contusion of face: Code(s): S00.83XA - Contusion of other part of head, initial encounter Status: Acute (3) Closed fracture nasal bone: Code(s): S02.2XXA - Fracture of nasal bones, initial encounter for closed fracture Status: Acute (4) Type 2 diabetes mellitus without complications: Onset Date: 10/2023 Code(s): E11.9 - Type 2 diabetes mellitus without complications Status: Chronic (5) Hypomagnesemia: Code(s): E83.42 - Hypomagnesemia Status: Acute (6) Hypertension: Code(s): I10 - Essential (primary) hypertension Status: Chronic (7) Head injury: Code(s): S09.90XA - Unspecified injury of head, initial encounter Status: Acute Plan the differential diagnosis of her condition may include cardiac arrhythmias versus a seizure disorder. The patient otherwise fairly healthy and has not had any issues in the past. She has borderline diabetes mellitus. I advised her that to consists follow with a privacy compliance manager for more prolonged cardiac monitoring. An EEG would be in order. MRI of the brain and CT angiogram head and neck did not show any significant abnormalities. I shall be glad to see her in my office. Her magnesium level only 0.9 and this has been corrected with the supplementation. She may wish to be on magnesium supplementation. I have advised her to defer driving for 30 days. Consult date: 05/02/24 HPI: Eve Aguirre is a 73 year old female Who presented to the hospital after having had an episode of loss of consciousness leading to injury to the left side of the face. She was leaning over to treatment the plants in her garden. She apparently lost consciousness and had injuries to the left side of the face and also fractured her nose. Patient was brought to the hospital emergency room a CT scan of brain was normal her magnesium level was low and she was given supplement for that. Chest x-ray did not show any abnormality. Her CT angiogram of the head and neck did not show any significant abnormalities. She has metal tube in her ears and hence MRI was somewhat of a question but later on it was done. No history of smoking or drinking alcohol or coronary artery disease. No history of passing out spell in the past. At this time she denies any other active symptoms other than some discomfort around the face where she had the fall or injury. Apparently she was somewhat confused after the spell. At home but he was around other side of the home until he found her. She is currently on a compliance monitor and this has not shown any significant cardiac arrhythmias So far. Review of Systems Review of Systems: All systems reviewed & are unremarkable except as noted in HPI and below PMFSH Past Medical History Medical History Breast asymmetry History of COVID-19 Hypertension IBS (irritable bowel syndrome) Kidney stones Normal colonoscopy 11/10 Repeat 11/20 Pure hypercholesterolemia, unspecified Screening mammogram, encounter for Screening mammogram, encounter for Sensorineural hearing loss, bilateral Type 2 diabetes mellitus with diabetic chronic kidney disease Surgical History Surgical History History of carpal tunnel surgery of left wrist 2006 History of section x 2 History of ear surgery right stapedectomy 2014 History of hysterectomy w/BSO History of lithotripsy History of parathyroid surgery 1998 Family History Family History Mother Cerebrovascular accident Sibling Breast cancer Diabetes mellitus Hypertension Father Heart disease Hypertension Malignant neoplasm of prostate Social History Social History Smoking status: Never smoker Second hand tobacco smoke exposure: No Alcohol intake: never Substance use: never Substance use type: does not use Do You Feel Safe in your Home?: Yes Lack of Transportation: No Lack of Food: Never True Current Housing: I Have Housing Concerned About Future Housing: No Difficulty Paying Gas/Electric Bills: No Difficulty Paying for Meds: No Currently Unemployed: No Education: High School Diploma/GED Difficulty w/ Childcare or Family Care: No Living arrangements: other Additional living arrangements comments: Occupation/Education: retired Gender identity (if verbalized by the patient): Female Sexual Orientation (if Verbalized by the Patient): Straight or Heterosexual Spiritual care concerns: No Agree to blood products: Yes Meds Home Medications and Allergies Home Medications Medication Instructions Recorded Confirmed Type doxycycline hyclate 100 mg tablet 50 mg PO DAILY PRN SKIN IRRITATION 08/04/23 04/30/24 History ON MOUTH metformin 500 mg tablet,extended 1,000 mg PO DAILY #180 tabs 11/18/23 04/30/24 Rx release 24 hr atorvastatin 40 mg tablet 40 mg PO DAILY 04/30/24 04/30/24 History lisinopril 10 mg tablet 10 mg PO DAILY 04/30/24 04/30/24 History spironolactone 50 mg tablet 50 mg PO DAILY PRN SWELLING 04/30/24 04/30/24 History Allergies Allergy/AdvReac Type Severity Reaction Status Date / Time diclofenac Allergy Unknown HIVES Verified 04/29/24 18:25 Sulfa (Sulfonamide Allergy Unknown SWOLLEN Verified 04/29/24 18:25 Antibiotics) LIPS Vital Signs Vital Signs - 24 hr 05/01/24 20:38 05/01/24 20:00 05/01/24 20:41 Temperature 97.9 F 97.9 F 97.9 F Pulse Rate 70 70 74 Respiratory Rate 18 18 18 Blood Pressure 116/54 L 116/54 L 125/52 L Pulse Oximetry 96 96 96 Oxygen Delivery Fraction of Inspired Oxygen 05/01/24 20:43 05/01/24 20:00 05/02/24 00:00 Temperature 97.9 F Pulse Rate 76 78 70 Respiratory Rate 18 Blood Pressure 128/55 L Pulse Oximetry 97 Oxygen Delivery Fraction of Inspired Oxygen 05/02/24 04:00 05/02/24 04:54 05/02/24 08:00 Temperature 97.6 F Pulse Rate 67 64 Respiratory Rate 18 Blood Pressure 129/58 L 138/43 L Pulse Oximetry 99 Oxygen Delivery Fraction of Inspired Oxygen 05/02/24 08:00 05/02/24 11:23 05/02/24 08:00 Temperature 97.7 F Pulse Rate 79 Respiratory Rate 14 Blood Pressure 131/43 L 142/50 H 138/47 L Pulse Oximetry 92 Oxygen Delivery Fraction of Inspired Oxygen 05/02/24 08:00 05/02/24 10:00 05/02/24 10:00 Temperature Pulse Rate 79 Respiratory Rate Blood Pressure 142/50 H Pulse Oximetry Oxygen Delivery Room Air Fraction of Inspired Oxygen 21 05/02/24 12:00 05/02/24 16:04 Temperature Pulse Rate 82 83 Respiratory Rate Blood Pressure Pulse Oximetry Oxygen Delivery Fraction of Inspired Oxygen Exam Const: General: cooperative, well developed and alert Orientation/consciousness: patient oriented x3 HENMT: Mouth: Yes oropharynx normal Other: Significant trauma noted on the left side of the face with bruising Eyes: Alignment and Position: position normal Pupils: Equal, round and reactive pupils present EOM: EOMs intact bilaterally Neck: Neck: supple Resp: Effort & Inspection: normal respiratory effort Auscultation: clear to auscultation bilaterally Neuro: General: patient oriented x3 Cranial nerves: Yes CN's II-XII intact bilaterally, Yes facial sensation intact/muscles of mastication intact, Yes Equal, round and reactive pupils present, Yes facial symmetry and Yes Midline tongue present Cognition (Neuro): normal cognition Speech: normal speech Gait exam (Neuro): Normal gait present Motor exam (neuro): 5/5 motor strength present throughout Sensory Exam: normal sensation Coordination: [id number] test normal and Normal rapid alternating movements of the distal upper extremity present (Neuro) Results Labs 05/02/24 05:38 05/02/24 05:38 Labs: Short CBC 05/02/24 Range/Units 05:38 WBC 3.2 L (4.5-10.0) K/mm3 Hgb 11.7 L (12.0-15.0) g/dL Hct 35.5 L (37.0-47.0) % Plt Count 181 (150-375) k/mm3 BMP 05/02/24 05:38 Sodium 136 L Potassium 3.5 Chloride 106 Carbon Dioxide 28 BUN 11 Creatinine 0.80 Glucose 115 H Calcium 8.5 Liver Function 05/02/24 Range/Units 05:38 Total Bilirubin 2.1 H (0.2-1.3) mg/dL AST 20 (14-36) U/L ALT 13 (6-35) U/L Alkaline Phosphatase 87 (38-126) U/L Albumin 3.5 (3.5-5.1) g/dL
[2024-05-02 21:06] LABS: Glucose Point of Care 172 mg/dl (65-105)
[2024-05-02] MEDS: ACETAMINOPHEN 325 MG TABLET 650 MG PO (22:18)
[2024-05-03] VITALS (7 sets, daily range): BP systolic 125–138; BP diastolic 62–67; PULSE 62–83; RESP 18; TEMP 36.3; O2SAT 100
[2024-05-03 07:06] LABS: Basophils Percent Auto 1.3 % (0.2-1.2); Eosinophils Absolute Auto 0.2 K/mm3 (0-0.3); Eosinophils Percent Auto 5.1 % (0-4.4); Hematocrit 35.5 % (37.0-47.0); Hemoglobin 11.9 g/dL (12.0-15.0); Immature Granulocyte Absolute 0.01 K/mm3 (0.00-0.031); Immature Granulocyte Percent A 0.3 % (0-0.5); Lymphocytes Percent Auto 44.3 % (18.3-44.2); Mean Corpuscular HGB Conc 33.5 g/dl (32-36); Mean Corpuscular Hemoglobin 30.3 pg (26-34); Mean Corpuscular Volume 90.3 fl (80-100); Mean Platelet Volume 12.5 fl (7.4-10.4); Monocytes Absolute Auto 0.3 K/mm3 (0.1-0.6); Monocytes Percent Auto 10.4 % (2.6-8.5); Neutrophils Absolute Auto 1.2 K/mm3 (1.3-6.7); Neutrophils Percent Auto 38.6 % (45.5-73.1); Platelet Count Result 182 k/mm3 (150-375); Red Blood Count 3.93 M/mm3 (4.2-5.4); White Blood Count 3.2 K/mm3 (4.5-10.0)
[2024-05-03 08:12] LABS: Alanine Aminotransferase 15 U/L (6-35); Albumin Level 3.5 g/dL (3.5-5.1); Alkaline Phosphatase 83 U/L (38-126); Anion Gap 3 mmol/L (4-12); Aspartate Amino Transferase 23 U/L (14-36); Blood Urea Nitrogen 10 mg/dL (7-17); Calcium 8.7 mg/dL (8.4-10.2); Carbon Dioxide 29 mmol/L (22-30); Chloride 106 mmol/L (98-107); Estimated CRCL calculation 49 ml/min; Estimated Glomerular Filt Rate > 60; Glucose 114 mg/dL (65-110); Magnesium 1.5 mg/dL (1.6-2.3); Potassium 3.8 mmol/L (3.4-5.0); Sodium 138 mmol/L (137-145)
--- NOTE | 2024-05-03 08:58 | WPDNEUROLOGY ---
Neurology EEG Report General Information Date of Study: 05/03/24 TEST Eeg DIAGNOSIS possible seizures. CONDITION OF RECORDING Awake, drowsy and asleep. EEG NUMBER [id number] CLINICAL HISTORY Patient's found patient unresponsive couple of days ago. Patient reports she does not remember feeling bad before it happened and also feels fine now. EEG DESCRIPTION During drowsiness low voltage beta activity seen diffusely with poor teena posterior gradient. Low-voltage beta, alpha, and theta activity is seen during drowsiness evolving into bilateral symmetrical sleep activity with normal and symmetrical sleep spindles. Hyperventilation not done. Photic stimulation not done. Non paroxysmal. Nonfocal. Non lateralizing. IMPRESSION Normal record but normal tracing does not rule out the possibility of clinical seizures. Clinical correlation recommended.
[2024-05-03] MEDS: lisinopriL 10 MG TABLET PO (09:14)
[2024-05-03] MEDS: ATORVASTATIN 40 MG TABLET PO (09:14)
[2024-05-03 09:23] LABS: Glucose Point of Care 132 mg/dl (65-105)
--- NOTE | 2024-05-03 11:26 | P.DS_ITS ---
DS: Admitting Diagnosis Discharge Date 05/03/2024 Admitting Diagnosis Syncope, Hypomagnesemia, Closed nasal fracture, Contusion of face DS: Discharge Diagnosis Discharge Diagnosis (1) Syncope: Code(s): R55 - Syncope and collapse Status: Acute Assessment and Plan: Loss of consciousness with injury. Unclear etiology 04/[address] No acute intracranial findings. 04/30 CTA HEAD/Neck 1. Normal brain. 2. No aneurysm or significant intracranial arterial stenosis. 3. 0% stenosis of the proximal right internal carotid artery relative to normal distal artery lumen diameter (NASCET criteria). 4. 12% stenosis of the proximal left internal carotid artery relative to normal distal artery lumen diameter. 05/01 MRI brain no acute findings, normal aging brain. Patient initially was concerned about having MRI due to tubes in her ears that are reportedly metal Orthostatic blood pressures were normal and did not show a drop in systolic blood pressure, in fact increased with position change, heart rate stayed normal. * Echo with bubble study shown normal LV systolic function with an estimated EF of 65-70%, grade 1 diastolic dysfunction, mild pulmonary HTN, negative bubble study * Continue cardiac monitoring, NSR on telemetry * EEG for possible seizure activity. * Low magnesium increases risk of seizure activity and arrhythmias * Event monitor after discharge * Neurology consulted * Initial Magnesium level 0.9 and she was given 3 gm of IV Magnesium in the ER. 1.6 today. 2G IV today. Likely give 200mg mag daily for a week and repeat labs outpatient * Hold spironolactone and doxycycline as these medications can cause hypomagnesemia * PT and OT ordered * Continue fall precautions 05/03/24: Date of discharge - Pt with negative EEG this AM. Pt will be referred to follow up with Dr. Thompson. She should not drive for at least 30 days. Holter monitor for 7 days placed today. (2) Hypomagnesemia: Code(s): E83.42 - Hypomagnesemia Status: Acute Assessment and Plan: * Magnesium today 1.3 * 3 gm Magnesium given again today * Hold spironolactone and doxycycline as this can cause low magnesium levels * Continue to trend 05/03/24: Date of discharge - Supplemental magnesium of 200 mg daily for one week prescribed. Will need outpt labs to recheck. Level today was 1.5. (3) Closed fracture nasal bone: Code(s): S02.2XXA - Fracture of nasal bones, initial encounter for closed fracture Status: Acute Assessment and Plan: * CT of the head/ cervical spine/ facial bone revealed a left nasal bone fracture, left maxillary sinus disease, obliteration of the left ostiomeatal complex, soft tissue swelling anterior to the left orbit and left maxillary sinus * Continue pain control. * ENT follow up outpatient 05/03/2024: Date of discharge - Discharge to home today with Dr. Cedric Carodna referral for ENT. (4) Contusion of face: Code(s): S00.83XA - Contusion of other part of head, initial encounter Status: Acute Assessment and Plan: * Left orbital contusion s/p ground-level fall. 05/03/2024: Date of discharge - Pt to use OTC meds for pain as needed and ice. (5) Type 2 diabetes mellitus without complications: Onset Date: 10/2023 Code(s): E11.9 - Type 2 diabetes mellitus without complications Status: Chronic Assessment and Plan: * Blood sugars ranging 107-121 * Hgb A1C 6.5 on 11/17/23 * Will recheck Hgb A1C today * Accu checks AC/HS * low dose SSI ordered * hypoglycemic protocol in place * Diabetic diet ordered * Hold Metformin 05/03/24: Date of discharge: Resume home medications (6) Pure hypercholesterolemia, unspecified: Code(s): E78.00 - Pure hypercholesterolemia, unspecified Status: Chronic Assessment and Plan: * continue atorvastatin (7) Hypertension: Code(s): I10 - Essential (primary) hypertension Status: Chronic Assessment and Plan: * Blood pressure ranging 106/49-142/50 * Continue Lisinopril DS: Summary Hospital Course Reason for hospitalization: Syncope Hospital Course: This very pleasant 73-year-old male patient with past medical history IBS, hyperlipidemia, diabetes mellitus, hypertension kidney stones was admitted to the hospital on April 30, 2024 after having a syncopal episode at home. 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 Immediately after the incident she was acutely confused but it resolved on its own. Patient was brought to the emergency room for evaluation is for CT of the head was negative, C-spine CT was negative but CT of the facial bone showed a left nasal bone fracture and obliteration of the last ostium medial complex. In addition she had hypomagnesemia with a magnesium level 0.9. Patient was admitted to hospital for further workup and management. Her hospitalization has been and full. Patient underwent echocardiogram showing a normal systolic function with ejection fraction 65-70%, grade 1 diastolic dysfunction, pulmonary hypertension negative bubble study, MRI of the brain with and without contrast was negative for any acute abnormalities and CTA of head and neck was also negative. Today patient had a normal EEG. Supplementation of magnesium was initiated to increase her magnesium level and today she is at 1.5. Patient will be discharged home with 200 mg of magnesium daily for 1 week and then she will need her magnesium level recheck as outpatient. She will also have a Holter monitor placed today for 1 week per Cardiology. She will be referred to Dr. Cedric Cardona your nose throat specialist for follow-up as outpatient and Dr. Thompson, Neurology for outpatient. Patient is not to drive for 30 days and she verbalized understanding of this. Other labs have been unremarkable and patient is not orthostatic. She is stable for discharge today and is agreeable to the plan of care. She was cleared for independent ambulation by Physical therapy. Status at Discharge Cognitive/behavioral status at discharge: At baseline Functional status at discharge: independent ambulation Overall status at discharge: patient is back to baseline Time Spent with Patient Time attestation: Total time spent providing and/or coordinating discharge services: Time spent: Greater than 30 minutes Specific discharge activities: Follow-up appointments, new medications of magnesium, Holter monitor, recheck a magnesium in 1 week and no driving. Exam Narrative: General: In no acute distress, well nourished Cardiac: Normal S1 and S2. RRR, No murmur, gallops or friction rubs, peripheral pulses intact. Respiratory: Lungs clear to auscultation, no adventitious lung sounds, currently on room air Gastrointestinal: soft, non-distended, non-tender, normoactive bowel sounds. : voiding without difficulty. Skin:ecchymosis over left eye, abrasion on nose and scab on bottom lip with swelling Neuro: Alert and oriented x4, moves all extremities. No focal neurologic deficit DS: Data Data Completed and Pending Completed studies during hospitalization: ITS Impressions Chest X-Ray 04/29/24 19:47 IMPRESSION: Bilateral prominent bronchovascular markings in the lower lobes with underlying interstitial changes. Differential include bronchitis versus early pneumonia versus atelectasis. Head CT 04/29/24 21:45 IMPRESSION: No acute intracranial findings. Head/Cervical Spine/Facial Bones CT 04/29/24 22:46 IMPRESSION: Left nasal bone fracture. Left maxillary sinus disease. Obliteration of the left ostiomeatal complex. Soft tissue swelling anterior to the left orbit and left maxillary sinus. CT facial & cervical spine wo Ordering provider: Thao Callahan History: . fall . Comparison: None. Technique: CT of the cervical spine was performed without contrast. Sagittal and coronal reformatted images were also obtained and reviewed. Automated exposure control and iterative reconstruction technique were employed. The dose- length product was 222.96 mGy-cm. FINDINGS: VERTEBRAE: No subluxation or acute fracture. The occipital condyles are intact. 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 DISC SPACES: Narrowing of the disc C3-C4, C4-C5, C5-C6, C6-C7 and C7-T1. Multilevel facet joint disease. Multilevel uncovertebral joint osteoarthritic changes. Narrowing of the left foramina at the level of C3-C4. Bilateral narrowing of the foramina at the level of C4-C5 more on the left side. Bilateral narrowing of the foramina at the level of C5-C6 and C6-C7 PARASPINOUS SOFT TISSUES: Normal. IMPRESSION: No acute osseous abnormality cervical spine. Head/Neck CTA 04/30/24 10:09 IMPRESSION: 1. Normal brain. 2. No aneurysm or significant intracranial arterial stenosis. 3. 0% stenosis of the proximal right internal carotid artery relative to normal distal artery lumen diameter (NASCET criteria). 4. 12% stenosis of the proximal left internal carotid artery relative to normal distal artery lumen diameter. Brain MRI 05/01/24 11:05 IMPRESSION: 1. Normal aging brain. Labs on day of discharge: Labs from last 24 hours 05/03/24 05/03/24 05/02/24 09:19 05:59 20:27 WBC 3.2 L RBC 3.93 L Hgb 11.9 L Hct 35.5 L MCV 90.3 MCH 30.3 MCHC 33.5 RDW 12.0 Plt Count 182 MPV 12.5 H Immature Gran % (Auto) 0.3 Neut % (Auto) 38.6 L Lymph % (Auto) 44.3 H [place] % (Auto) 10.4 H Eos % (Auto) 5.1 H Baso % (Auto) 1.3 H Lymph # (Auto) 1.40 [place] # (Auto) 0.3 Eos # (Auto) 0.2 Baso # (Auto) 0.0 Abs Immat Gran (auto) 0.01 Absolute Neuts (auto) 1.2 L Absolute Nucleated RBC 0.000 Nucleated RBC % 0.0 Sodium 138 Potassium 3.8 Chloride 106 Carbon Dioxide 29 Anion Gap 3 L BUN 10 Creatinine 0.90 Estim Creat Clear Calc 49 Estimated GFR > 60 Glucose 114 H POC Capillary Glucose 132 H 172 H Calcium 8.7 Magnesium 1.5 L Total Bilirubin 2.0 H AST 23 ALT 15 Alkaline Phosphatase 83 Total Protein 6.0 L Albumin 3.5 05/02/24 05/02/24 16:28 12:09 WBC RBC Hgb Hct MCV MCH MCHC RDW Plt Count MPV Immature Gran % (Auto) Neut % (Auto) Lymph % (Auto) [place] % (Auto) Eos % (Auto) Baso % (Auto) Lymph # (Auto) [place] # (Auto) Eos # (Auto) Baso # (Auto) Abs Immat Gran (auto) Absolute Neuts (auto) Absolute Nucleated RBC Nucleated RBC % Sodium Potassium Chloride Carbon Dioxide Anion Gap BUN Creatinine Estim Creat Clear Calc Estimated GFR Glucose POC Capillary Glucose 127 H 180 H Calcium Magnesium Total Bilirubin AST ALT Alkaline Phosphatase Total Protein Albumin Discharge Plan Discharge Attending physician on discharge: Bailee Bruce Consulting providers: Mickey Langley Discharging Clinician: Bailee Bruce Anticipated Discharge Date/Time: 05/03/24 11:35 Patient Disposition: Home, Self-Care Activity: no driving Diet: regular and heart healthy Discharge Instructions: Thank you for allowing us to care for you during hospitalization. You have underwent multiple testings all of which had been unremarkable. Your magnesium has increased today to 1.5 which is still low so he will be placed on a magnesium supplement as outpatient. In addition he will be asked to follow-up with pear picker, Dr. Cedric Cardona and Dr. Thompson from Neurology as outpt. A Holter monitor has been placed on you and we asked that she follow cardiology's recommendations upon discharge for return. Your magnesium level need to be checked as an outpatient in 1 week. As discussed if any new or worsening symptoms, specifically new onset headache, dizziness, change in vision, onset of vomiting it is very important to return to the emergency room for evaluation immediately. Otherwise please also make a follow- up appointment with her primary care provider. It is very important that she remaining not drive for 30 days. Otherwise, Mirian to activity as tolerated with exception of anything that causes increased discomfort. If anything occurs then do not do it. For any pain please take extra-strength Tylenol and apply ice to your face. He will be receiving in oral antibiotic due to the abrasions on your mouth. Please take it as ordered to completion. Patient Instructions: Antibiotic Form, Nasal Fracture (DC), Holter Monitor (GEN) Patient Language: Croatian Stand Alone Forms: General Discharge Information Follow-up/Referrals: Cedric Cardona [Other] - Call for Appointment (Call to make appointment to follow up for nasal fractures and facial fractures ) Mickey Langley MD [Physician] - 2 Weeks (Follow up with Dr. Thompson or Dr. Langley in 2 weeks.) Lino Mattson MD [Primary Care Provider] - 1 Week Discharge Medications: New magnesium oxide 200 mg magnesium tablet 200 mg PO DAILY Qty: 7 0RF Continued doxycycline hyclate 100 mg tablet 50 mg PO DAILY PRN (Reason: SKIN IRRITATION ON MOUTH) atorvastatin 40 mg tablet 40 mg PO DAILY spironolactone 50 mg tablet 50 mg PO DAILY PRN (Reason: SWELLING) Rx Instructions: 50 mg orally PRN lisinopril 10 mg tablet 10 mg PO DAILY metformin 500 mg tablet extended release 24 hr 1,000 mg PO DAILY Qty: 180 3RF Other Ambulatory Orders: CA cardiac event monitor (Routine) Timeframe: 1 Day Location: Determined by Patient Ordered By: Bailee Bruce Magnesium (Routine) Timeframe: 1 Week Location: Determined by Patient Ordered By: Bailee Bruce Date of admission: 04/30/24 00:53 Primary Care Provider: Lino Mattson Admitting Provider: Robyn Spain Attending physician on admission: Bailee Bruce Condition: Stable Quality VTE Prophylaxis VTE prophylaxis: mechanical ordered Hospitalist MIPS Heart Failure (Exclusion) Patient has history of Heart Transplant or Left Ventricular Assistive Device?: No IF YES, STOP HERE Heart Failure (Qualifier) Patient has current or prior documentation of LVEF less than or equal to 40%, or mod/servere depressed LVSF?: No IF NO, STOP HERE
[2024-05-03 11:55] LABS: Glucose Point of Care 206 mg/dl (65-105)
--- NOTE | 2024-05-03 12:50 | WPDNEUROPN ---
Subjective Date/time seen: 05/03/24 12:50 Interval history: 73 years old right-handed female had an episode of being unconscious resulting in the facial trauma in addition to the ongoing diagnosis of type 2 diabetes mellitus, hypermagnesemia, hypertension, and resultant head injury this particular time, evaluation documented her to be anemic with hemoglobin of 11.9, normal platelet count, blood sugar 206, normal UA, normal MRI of the brain, negative head neck CTA with only 12% stenosis of proximal left internal carotid , left nasal bone fracture, possibility of the cardiac dysrhythmia for which she will need a follow-up with the solutions sales executive along with the cardiac monitoring, she has had echocardiogram done in April of 2024 which was not significantly abnormal she is receiving atorvastatin 40mg daily along with the lisinopril 10mg daily, she is being discharged with a monitor on for the possibility of documentation of cardiac dysrhythmia or as atrial fibrillation. Eeg will be done before she goes home. Objective Data Vital Signs Vital Signs: Vital Signs - 24 hr 05/02/24 16:04 05/02/24 20:00 05/02/24 20:00 Temperature 36.5 C Pulse Rate 83 64 69 Respiratory Rate 18 Blood Pressure 142/62 H Pulse Oximetry 99 Oxygen Delivery 05/02/24 20:19 05/02/24 20:22 05/02/24 20:23 Temperature 36.5 C 36.5 C 36.5 C Pulse Rate 64 68 68 Respiratory Rate 18 18 18 Blood Pressure 142/62 H 147/59 H 147/59 H Pulse Oximetry 99 100 100 Oxygen Delivery 05/02/24 20:24 05/03/24 00:00 05/03/24 04:00 Temperature 36.5 C Pulse Rate 71 67 62 Respiratory Rate 18 Blood Pressure 150/63 H Pulse Oximetry 100 Oxygen Delivery 05/03/24 08:00 05/03/24 08:00 05/03/24 08:00 Temperature 36.3 C L Pulse Rate 64 72 Respiratory Rate 18 Blood Pressure 125/62 Pulse Oximetry 100 Oxygen Delivery Room Air 05/03/24 09:02 05/03/24 09:03 05/03/24 09:04 Temperature Pulse Rate 64 65 72 Respiratory Rate Blood Pressure 125/62 136/62 138/67 Pulse Oximetry Oxygen Delivery Intake/Output Intake/Output: Intake & Output 04/30/24 05/01/24 05/02/24/10/24 23:59 23:59 23:59 23:59 Intake Total 990 1630 1180 240 Balance 990 1630 1180 240 Meds/Results Medications: Active Medications Generic Name Dose Route Start Last Admin Trade Name Freq PRN Reason Stop Dose Admin Acetaminophen 650 mg 04/30/24 08:25 05/02/24 22:18 Acetaminophen 325 Mg Tablet PO 650 mg Q4H PRN Administration Mild Pain (1-3) or Fever Hydrocodone Bitart/Acetaminophen 1 tab 04/30/24 00:53 04/30/24 13:09 Hydrocodone/Acetaminophen (*Crx) 5-325 Mg Tablet PO 1 tab Q4H PRN Administration Pain Rated 4-6 Atorvastatin Calcium 40 mg 04/30/24 09:00 05/02/24 09:58 Atorvastatin 40 Mg Tablet PO 40 mg DAILY DEEDEE Administration Dextrose 12.5 gm 04/30/24 08:25 Dextrose 50% 25 Gm/50 Ml Syringe IV PUSH PRN PRN Hypoglycemia Protocol Enoxaparin Sodium 40 mg 04/30/24 09:00 05/03/24 09:20 Enoxaparin 40 Mg/0.4 Ml Syringe SUB-Q Not Given DAILY DEEDEE Glucagon 1 mg 04/30/24 08:25 Glucagon For Inj 1 Mg Vial IM PRN PRN Hypoglycemia Protocol Glucose 15 gm 04/30/24 08:25 Glucose Oral Gel 15 Gm Of Glucse In 37.5 Gm Tube PO PRN PRN Hypoglycemia Protocol Dextrose 1,000 mls @ 100 mls/hr 04/30/24 08:25 Dextrose 5% 1,000 Ml IVPB PRN PRN Hypoglycemia Protocol Insulin Aspart 2 - 5 units 04/30/24 09:05 05/03/24 09:19 Insulin Aspart (*Bkc) 100 Units/Ml SUB-Q Not Given TIDWM [facility] Protocol Insulin Aspart 1 - 2 units 04/30/24 21:00 05/02/24 21:16 Insulin Aspart (*Bkc) 100 Units/Ml SUB-Q Not Given HS [facility] Protocol Lisinopril 10 mg 04/30/24 09:00 05/03/24 09:14 Lisinopril 10 Mg Tablet PO 10 mg DAILY DEEDEE Administration Ondansetron HCl 4 mg 04/30/24 00:53 Ondansetron Inj 4 Mg/2 Ml Vial IV PUSH Q4H PRN Nausea Spironolactone 50 mg 04/30/24 08:33 Spironolactone 50 Mg Tablet PO DAILY PRN SWELLING Radiology Results: ITS Impressions Chest X-Ray 04/29/24 19:47 IMPRESSION: Bilateral prominent bronchovascular markings in the lower lobes with underlying interstitial changes. Differential include bronchitis versus early pneumonia versus atelectasis. Head CT 04/29/24 21:45 IMPRESSION: No acute intracranial findings. Head/Cervical Spine/Facial Bones CT 04/29/24 22:46 IMPRESSION: Left nasal bone fracture. Left maxillary sinus disease. Obliteration of the left ostiomeatal complex. Soft tissue swelling anterior to the left orbit and left maxillary sinus. CT facial & cervical spine wo Ordering provider: Thao Callahan History: . fall . Comparison: None. Technique: CT of the cervical spine was performed without contrast. Sagittal and coronal reformatted images were also obtained and reviewed. Automated exposure control and iterative reconstruction technique were employed. The dose-length product was 222.96 mGy-cm. FINDINGS: VERTEBRAE: No subluxation or acute fracture. The occipital condyles are intact. 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 DISC SPACES: Narrowing of the disc C3-C4, C4-C5, C5-C6, C6-C7 and C7-T1. Multilevel facet joint disease. Multilevel uncovertebral joint osteoarthritic changes. Narrowing of the left foramina at the level of C3-C4. Bilateral narrowing of the foramina at the level of C4-C5 more on the left side. Bilateral narrowing of the foramina at the level of C5-C6 and C6-C7 PARASPINOUS SOFT TISSUES: Normal. IMPRESSION: No acute osseous abnormality cervical spine. Head/Neck CTA 04/30/24 10:09 IMPRESSION: 1. Normal brain. 2. No aneurysm or significant intracranial arterial stenosis. 3. 0% stenosis of the proximal right internal carotid artery relative to normal distal artery lumen diameter (NASCET criteria). 4. 12% stenosis of the proximal left internal carotid artery relative to normal distal artery lumen diameter. Brain MRI 05/01/24 11:05 IMPRESSION: 1. Normal aging brain. Labs Labs: Laboratory Results - last 24 hr 05/02/24 05/02/24 05/03/24 16:28 20:27 05:59 WBC 3.2 L RBC 3.93 L Hgb 11.9 L Hct 35.5 L MCV 90.3 MCH 30.3 MCHC 33.5 RDW 12.0 Plt Count 182 MPV 12.5 H Immature Gran % (Auto) 0.3 Neut % (Auto) 38.6 L Lymph % (Auto) 44.3 H [place] % (Auto) 10.4 H Eos % (Auto) 5.1 H Baso % (Auto) 1.3 H Lymph # (Auto) 1.40 [place] # (Auto) 0.3 Eos # (Auto) 0.2 Baso # (Auto) 0.0 Abs Immat Gran (auto) 0.01 Absolute Neuts (auto) 1.2 L Absolute Nucleated RBC 0.000 Nucleated RBC % 0.0 Sodium 138 Potassium 3.8 Chloride 106 Carbon Dioxide 29 Anion Gap 3 L BUN 10 Creatinine 0.90 Estim Creat Clear Calc 49 Estimated GFR > 60 Glucose 114 H POC Capillary Glucose 127 H 172 H Calcium 8.7 Magnesium 1.5 L Total Bilirubin 2.0 H AST 23 ALT 15 Alkaline Phosphatase 83 Total Protein 6.0 L Albumin 3.5 05/03/24 05/03/24 09:19 11:47 WBC RBC Hgb Hct MCV MCH MCHC RDW Plt Count MPV Immature Gran % (Auto) Neut % (Auto) Lymph % (Auto) [place] % (Auto) Eos % (Auto) Baso % (Auto) Lymph # (Auto) [place] # (Auto) Eos # (Auto) Baso # (Auto) Abs Immat Gran (auto) Absolute Neuts (auto) Absolute Nucleated RBC Nucleated RBC % Sodium Potassium Chloride Carbon Dioxide Anion Gap BUN Creatinine Estim Creat Clear Calc Estimated GFR Glucose POC Capillary Glucose 132 H 206 H Calcium Magnesium Total Bilirubin AST ALT Alkaline Phosphatase Total Protein Albumin
--- NOTE | 2024-05-16 09:00 | WPDHOLTEREM ---
Holter/Event Monitor Holter/Event Monitor Date of procedure: 05/03/24 Holter/Event Procedure: 3-7 Day Holter Monitor Indications: Syncope Conclusion: 1. 7 days holter monitor on 05/03/24. 2. Predominant rhythm is sinus rhythm. HR range 52-179 bpm; average HR 79 bpm. 3. There are rare premature supraventricular complexes, rare supraventricular couplets, and rare supraventricular triplets. There are 15 episodes of supraventricular tachycardia, fastest at 179 bpm and longest lasting 9 seconds. 4. There are rare premature ventricular complexes and rare ventricular couplets. No ventricular tachycardia. 5. No significant pauses greater than 3 seconds. 6. No symptoms available for correlation.
== END 2024-05-03 13:54 | disposition home or self-care (01) ==
LOC: ANHED 04-30 00:19 → ANH3MED 04-30 02:00
PROVIDERS: Nurse Practitioner Acute Care; Physician Assistant; Admitting Provider Internal Medicine; Emergency Provider Emergency Medicine; PCP Family Medicine Adolescent Medicine; Visit Provider Nurse Practitioner Adult Health
DX: S02.2XXA Fracture of nasal bones, initial encounter for closed fracture (principal); S00.83XA Contusion of other part of head, initial encounter; S09.90XA Unspecified injury of head, initial encounter; R55 Syncope and collapse; E83.42 Hypomagnesemia; W18.30XA Fall on same level, unspecified, initial encounter; I12.9 Hypertensive chronic kidney disease with stage 1 through stage 4 chronic kidney disease, or unspecified chronic kidney disease; E11.22 Type 2 diabetes mellitus with diabetic chronic kidney disease; N18.9 Chronic kidney disease, unspecified; E78.00 Pure hypercholesterolemia, unspecified; Z79.84 Long term (current) use of oral hypoglycemic drugs
CPT/HCPCS: 36415; 70450; 70486; 70496; 70498; 70551; 71045; 72125; 80053; 81001; 82948; 83036; 83735; 84100; 84443; 84484; 85025; 93005; 93242; 93306; 95816; 96365; 96366; 96372; 96375; 97116; 97161; 97165; 97530; 99285; A9270; G0378; J1650; J3475; J3480; J7050; Q9967

== ENCOUNTER 2025-01-11 10:23 | Outpatient (CLI) | payer MEDICARE, SELFPAY ==
--- NOTE | ~2025-01-11 | MM_ITS ---
EXAMINATION: MM screening grisel BI w robert HISTORY: Screening mammogram, family history of breast cancer in her sister. TECHNIQUE: Craniocaudal and mediolateral oblique 3-D tomosynthesis images were obtained and synthetic 2-D images were generated. CAD analysis was submitted and interpreted. COMPARISON: 01/08/2024, 11/11/2022, 10/22/2022, 07/18/2021 BREAST PARENCHYMAL COMPOSITION:Not Dense. There are scattered areas of fibroglandular density. FINDINGS: No suspicious mass, calcification, or architectural distortion are identified in either breast to suggest malignancy. There has been no suspicious interval change. IMPRESSION: No mammographic evidence of malignancy. Recommend routine screening mammography in one year. BI-RADS Category 1: Negative Reviewed, dictated and finalized at [facility].
== END 2025-01-11 10:24 | disposition home or self-care (01) ==
PROVIDERS: PCP Obstetrics & Gynecology; Visit Provider Family Medicine Adolescent Medicine
DX: Z12.31 Encounter for screening mammogram for malignant neoplasm of breast (principal)
CPT/HCPCS: 77063; 77067